=== PATIENT | male | born 1980 | race African-American/Black ===

== ENCOUNTER 2021-04-10 13:39 | Inpatient (IN) ==
[2021-04-10 14:18] LABS: Basophils % 0.4 % (0.0-0.8); Eosinophils % 0.2 % (0.00-10.9); Hematocrit 27.7 VOL% (42.0-52.0); Hemoglobin 8.9 GM/DL (14.0-18.0); Immature Granulocytes % 0.5 %; Immature Granulocytes Absolute 0.05 #; Lymphocytes # 1.1 10*3/uL (1.4-4.0); Lymphocytes % 11.9 % (21.2-54.2); Mean Corpuscular HGB Conc 32.1 GM/DL (32-36); Mean Corpuscular Volume 87.7 FL (87-102); Monocytes % 8.5 % (1.7-12.7); Neutrophils % 78.5 % (38.7-73.9); Platelet Count 290 T/CUMM (130-400); Red Blood Count 3.16 MC/CUMM (3.8-5.5); Red Cell Distribution Width 13.6 % (9.3-17.3); White Blood Count 9.3 T/CUMM (4-12)
[2021-04-10 14:46] LABS: Albumin 2.8 G/DL (3.4-5.0); Bilirubin,Total 0.5 MG/DL (0.20-1.00); Calcium 8.4 MG/DL (8.5-10.1); Potassium 4.1 MMOL/L (3.5-5.1); Total Protein 7.7 G/DL (6.4-8.2)
[2021-04-10] MEDS ORDERED: FUROSEMIDE 40 MG/4 ML VIAL IV STA (16:58)
[2021-04-10] MEDS ORDERED: cefTRIAXone 1,000 MG in SODIUM CHLORIDE 0.9% 100 ML IV STA (16:58)
[2021-04-10] MEDS ORDERED: AZITHROMYCIN INJ 500 MG in SODIUM CHLORIDE 0.9% 250 ML IV STA (16:58)
[2021-04-10] MEDS ORDERED: ALBUTEROL/IPRATROPIUM 3 ML NEB RESP TX STA (16:58)
[2021-04-10] MEDS ORDERED: ONDANSETRON 4 MG/2 ML VIAL IV STA (16:58)
[2021-04-10] MEDS ORDERED: KETOROLAC 30 MG/1 ML VIAL IV STA (16:59)
[2021-04-10] MEDS ORDERED: GLUCAGON 1 MG VIAL IM PRN ×2 (17:35→17:38)
[2021-04-10] MEDS ORDERED: DEXTROSE 50% 25 GM/50 ML VIAL IV PRN (17:35)
[2021-04-10] MEDS ORDERED: MAGNESIUM SULF RIDER 2 GM/50 ML PREMIX IV PRN (17:38)
[2021-04-10] MEDS ORDERED: ONDANSETRON 4 MG/2 ML VIAL IV PRN (17:38)
[2021-04-10] MEDS ORDERED: MAGNESIUM SULF RIDER 4 GM/100 ML PREMIX IV PRN (17:38)
[2021-04-10] MEDS ORDERED: DEXTROSE 10% 250 ML BAG IV PRN (17:47)
[2021-04-10 18:45] LABS: Ferritin 208.4 ng/mL (26-388)
[2021-04-10 18:52] LABS: INR 1.1; PT Patient Result 12.4 SECS (10.5-12.0); Thyroid Stimulating Hormone 0.945 uIU/ml (0.358-3.74)
[2021-04-10] MEDS: ENOXAPARIN 30 MG/0.3 ML SYRINGE SUBCUT SCH (20:49)
[2021-04-10] MEDS: carvediloL 6.25 MG TABLET PO SCH (20:49)
[2021-04-10] MEDS: INSULIN GLARGINE 100 UNIT/ML SUBCUT SCH (20:49)
[2021-04-10] MEDS: INSULIN LISPRO 100 UNIT/ML SUBCUT SCH (20:56)
[2021-04-10] MEDS: INSULIN REGULAR 100 UNIT/ML SUBCUT SCH (20:58)
[2021-04-11 07:25] LABS: Risk Ratio 2.48; VLDL Cholesterol 11.6 MG/DL
[2021-04-11] MEDS ORDERED: FUROSEMIDE 40 MG/4 ML VIAL IV SCH (08:00)
[2021-04-11] MEDS: INSULIN REGULAR 100 UNIT/ML SUBCUT SCH ×4 (09:25→20:00)
[2021-04-11] MEDS: INSULIN LISPRO 100 UNIT/ML SUBCUT SCH ×4 (09:25→20:31)
[2021-04-11 09:34] LABS: Calcium 8.3 MG/DL (8.5-10.1); Potassium 3.5 MMOL/L (3.5-5.1)
[2021-04-11 09:41] LABS: Folate 14.3 NG/ML (5.38-24.0)
[2021-04-11 10:04] LABS: % Iron Saturation 7.8 % (18-50); Ferritin 199.3 ng/mL (26-388)
[2021-04-11] MEDS: LOSARTAN 50 MG TABLET PO SCH (10:08)
[2021-04-11] MEDS: ASPIRIN CHEW 81 MG TABLET PO SCH (10:08)
[2021-04-11] MEDS: metOLazone 2.5 MG TABLET PO SCH (10:08)
[2021-04-11] MEDS: PANTOPRAZOLE 40 MG TABLET PO SCH (10:08)
[2021-04-11] MEDS: carvediloL 6.25 MG TABLET PO SCH ×2 (10:08→20:00)
[2021-04-11] MEDS: FERRIC GLUCONATE COMPLEX 125 MG in SODIUM CHLORIDE 0.9% 100 ML IV SCH (14:43)
[2021-04-11] MEDS: ENOXAPARIN 30 MG/0.3 ML SYRINGE SUBCUT SCH (19:59)
[2021-04-11] MEDS: INSULIN GLARGINE 100 UNIT/ML SUBCUT SCH (20:00)
[2021-04-11] MEDS ORDERED: FUROSEMIDE 40 MG/4 ML VIAL IV ONE (21:21)
[2021-04-12] MEDS ORDERED: ALBUTEROL/IPRATROPIUM 3 ML NEB RESP TX SCH (01:00)
[2021-04-12] MEDS: ALBUTEROL/IPRATROPIUM 3 ML NEB RESP TX SCH ×4 (01:50→19:15)
[2021-04-12 06:31] LABS: Basophils % 0.4 % (0.0-0.8); Eosinophils % 0.1 % (0.00-10.9); Hematocrit 28.3 VOL% (42.0-52.0); Immature Granulocytes % 0.5 %; Immature Granulocytes Absolute 0.05 #; Lymphocytes # 1.3 10*3/uL (1.4-4.0); Lymphocytes % 13.4 % (21.2-54.2); Mean Corpuscular HGB Conc 31.8 GM/DL (32-36); Mean Corpuscular Volume 87.3 FL (87-102); Mean Platelet Volume 10.2 FL (9.6-12.0); Monocytes % 9.1 % (1.7-12.7); Neutrophils % 76.5 % (38.7-73.9); Platelet Count 310 T/CUMM (130-400); Red Blood Count 3.24 MC/CUMM (3.8-5.5); Red Cell Distribution Width 13.4 % (9.3-17.3); White Blood Count 9.3 T/CUMM (4-12)
[2021-04-12 07:11] LABS: Calcium 8.7 MG/DL (8.5-10.1); Osmolality,Calculated 272.5 MOS/KG (273-304); Potassium 3.7 MMOL/L (3.5-5.1)
[2021-04-12] MEDS: INSULIN REGULAR 100 UNIT/ML SUBCUT SCH ×4 (09:42→22:21)
[2021-04-12] MEDS: INSULIN LISPRO 100 UNIT/ML SUBCUT SCH ×4 (09:43→22:20)
[2021-04-12] MEDS: FERRIC GLUCONATE COMPLEX 125 MG in SODIUM CHLORIDE 0.9% 100 ML IV SCH (10:46)
[2021-04-12] MEDS: carvediloL 6.25 MG TABLET PO SCH ×2 (10:48→22:19)
[2021-04-12] MEDS: ASPIRIN CHEW 81 MG TABLET PO SCH (10:48)
[2021-04-12] MEDS: PANTOPRAZOLE 40 MG TABLET PO SCH (10:48)
[2021-04-12] MEDS: AZITHROMYCIN 250 MG TABLET PO SCH (10:48)
[2021-04-12] MEDS: metOLazone 2.5 MG TABLET PO SCH (10:48)
[2021-04-12] MEDS: LOSARTAN 50 MG TABLET PO SCH (10:50)
[2021-04-12] MEDS: amLODIPine 10 MG TABLET PO SCH (10:54)
[2021-04-12] MEDS: cefTRIAXone 1,000 MG in SODIUM CHLORIDE 0.9% 100 ML IV SCH (22:19)
[2021-04-12] MEDS: ASCORBIC ACID 500 MG TABLET PO SCH (22:19)
[2021-04-12] MEDS: INSULIN GLARGINE 100 UNIT/ML SUBCUT SCH (22:21)
[2021-04-12] MEDS: ENOXAPARIN 30 MG/0.3 ML SYRINGE SUBCUT SCH (22:21)
[2021-04-13] MEDS: ALBUTEROL/IPRATROPIUM 3 ML NEB RESP TX SCH ×4 (00:40→19:45)
[2021-04-13 05:56] LABS: Ferritin 365.9 ng/mL (26-388)
[2021-04-13] MEDS: INSULIN REGULAR 100 UNIT/ML SUBCUT SCH (08:06)
[2021-04-13] MEDS: INSULIN LISPRO 100 UNIT/ML SUBCUT SCH ×7 (09:26→22:05)
[2021-04-13] MEDS: amLODIPine 10 MG TABLET PO SCH (09:27)
[2021-04-13] MEDS: ASPIRIN CHEW 81 MG TABLET PO SCH (09:27)
[2021-04-13] MEDS: metOLazone 2.5 MG TABLET PO SCH (09:27)
[2021-04-13] MEDS: ZINC GLUCONATE 50 MG TABLET PO SCH (09:27)
[2021-04-13] MEDS: CHOLECALCIFEROL 1,000 UNIT TABLET PO SCH (09:27)
[2021-04-13] MEDS: carvediloL 6.25 MG TABLET PO SCH ×2 (09:27→21:39)
[2021-04-13] MEDS: PANTOPRAZOLE 40 MG TABLET PO SCH (09:27)
[2021-04-13] MEDS: FERRIC GLUCONATE COMPLEX 125 MG in SODIUM CHLORIDE 0.9% 100 ML IV SCH (09:27)
[2021-04-13] MEDS: ASCORBIC ACID 500 MG TABLET PO SCH ×2 (09:27→21:39)
[2021-04-13] MEDS: AZITHROMYCIN 250 MG TABLET PO SCH (09:28)
[2021-04-13 10:09] LABS: Calcium 8.5 MG/DL (8.5-10.1); Osmolality,Calculated 281.1 MOS/KG (273-304); Potassium 3.4 MMOL/L (3.5-5.1)
[2021-04-13] MEDS ORDERED: POTASSIUM CHLORIDE 20 MEQ TABLET PO ONE (11:04)
[2021-04-13] MEDS ORDERED: ENOXAPARIN 30 MG/0.3 ML SYRINGE SUBCUT SCH (21:00)
[2021-04-13] MEDS: cefTRIAXone 1,000 MG in SODIUM CHLORIDE 0.9% 100 ML IV SCH (21:37)
[2021-04-13] MEDS: INSULIN GLARGINE 100 UNIT/ML SUBCUT SCH (22:06)
[2021-04-14] MEDS: ALBUTEROL/IPRATROPIUM 3 ML NEB RESP TX SCH ×4 (00:09→18:50)
[2021-04-14 04:34] LABS: ABG Base Excess 4.1 MMOL/L (-2.5-2.5); ABG HCO3 27.2 MMOL/L (20-26); ABG Oxygen Saturation 96.9 % (95-100); ABG PCO2 35.6 MM HG (35-48); ABG PH 7.501 (7.35-7.45); ABG PO2 91.7 MM HG (80-95); ABG TCO2 28.3 MMOL/L (23-27)
[2021-04-14] MEDS: ENOXAPARIN 100 MG/ML SYRINGE SUBCUT SCH ×2 (05:08→17:24)
[2021-04-14] MEDS: hydrALAZINE 20 MG/1 ML VIAL IV PRN (05:11)
[2021-04-14 05:31] LABS: Basophils # 0.1 10*3/uL (0.0-0.2); Basophils % 0.6 % (0.0-0.8); Eosinophils # 0.1 10*3/uL (0.0-0.87); Hematocrit 26.7 VOL% (42.0-52.0); Hemoglobin 8.5 GM/DL (14.0-18.0); Immature Granulocytes % 0.8 %; Immature Granulocytes Absolute 0.07 #; Lymphocytes # 1.3 10*3/uL (1.4-4.0); Lymphocytes % 14.4 % (21.2-54.2); Mean Corpuscular HGB Conc 31.8 GM/DL (32-36); Mean Corpuscular Volume 86.7 FL (87-102); Mean Platelet Volume 10.4 FL (9.6-12.0); Monocytes % 9.5 % (1.7-12.7); Neutrophils % 73.7 % (38.7-73.9); Platelet Count 336 T/CUMM (130-400); Red Blood Count 3.08 MC/CUMM (3.8-5.5); Red Cell Distribution Width 13.4 % (9.3-17.3); White Blood Count 9.1 T/CUMM (4-12)
[2021-04-14 05:46] LABS: Calcium 8.4 MG/DL (8.5-10.1); Ferritin 510.6 ng/mL (26-388); Osmolality,Calculated 282.1 MOS/KG (273-304); Potassium 3.5 MMOL/L (3.5-5.1)
[2021-04-14] MEDS ORDERED: FUROSEMIDE 100 MG/10 ML VIAL IV ONE (09:30)
[2021-04-14] MEDS: PANTOPRAZOLE 40 MG TABLET PO SCH (10:03)
[2021-04-14] MEDS: FERRIC GLUCONATE COMPLEX 125 MG in SODIUM CHLORIDE 0.9% 100 ML IV SCH (10:03)
[2021-04-14] MEDS: AZITHROMYCIN 250 MG TABLET PO SCH (10:03)
[2021-04-14] MEDS: ZINC GLUCONATE 50 MG TABLET PO SCH (10:03)
[2021-04-14] MEDS: INSULIN LISPRO 100 UNIT/ML SUBCUT SCH ×8 (10:04→22:40)
[2021-04-14] MEDS: ASPIRIN CHEW 81 MG TABLET PO SCH (10:04)
[2021-04-14] MEDS: amLODIPine 10 MG TABLET PO SCH (10:04)
[2021-04-14] MEDS: ASCORBIC ACID 500 MG TABLET PO SCH ×2 (10:04→22:54)
[2021-04-14] MEDS: CHOLECALCIFEROL 1,000 UNIT TABLET PO SCH (10:04)
[2021-04-14] MEDS: carvediloL 6.25 MG TABLET PO SCH (10:42)
[2021-04-14] MEDS: cefTRIAXone 1,000 MG in SODIUM CHLORIDE 0.9% 100 ML IV SCH (22:51)
[2021-04-14] MEDS: carvediloL 12.5 MG TABLET PO SCH (22:55)
[2021-04-14] MEDS: INSULIN GLARGINE 100 UNIT/ML SUBCUT SCH (22:55)
[2021-04-15] MEDS: ALBUTEROL/IPRATROPIUM 3 ML NEB RESP TX SCH ×4 (00:30→20:35)
[2021-04-15 05:14] LABS: Basophils # 0.1 10*3/uL (0.0-0.2); Basophils % 0.5 % (0.0-0.8); Eosinophils # 0.1 10*3/uL (0.0-0.87); Eosinophils % 0.7 % (0.00-10.9); Hemoglobin 8.1 GM/DL (14.0-18.0); Immature Granulocytes % 0.9 %; Immature Granulocytes Absolute 0.09 #; Lymphocytes # 1.5 10*3/uL (1.4-4.0); Lymphocytes % 14.9 % (21.2-54.2); Mean Corpuscular HGB Conc 32.4 GM/DL (32-36); Mean Corpuscular Volume 87.1 FL (87-102); Monocytes % 9.1 % (1.7-12.7); NRBC # 0.02 10*3/uL; Neutrophils % 73.9 % (38.7-73.9); Platelet Count 314 T/CUMM (130-400); Red Blood Count 2.87 MC/CUMM (3.8-5.5); Red Cell Distribution Width 13.8 % (9.3-17.3); White Blood Count 9.7 T/CUMM (4-12)
[2021-04-15 05:55] LABS: Alanine Aminotransferase 24 U/L (16-61); Albumin 1.8 G/DL (3.4-5.0); Alkaline Phosphatase 104 U/L (45-117); Aspartate Amino Transferase 44 U/L (0-37); Bilirubin,Total < 0.39 MG/DL (0.20-1.00); Blood Urea Nitrogen 44 MG/DL (7-18); Calcium 8.9 MG/DL (8.5-10.1); Carbon Dioxide 29 MMOL/L (21-32); Estimated Glom Filtration Rate 47 ML/MIN; Glucose 95 MG/DL (74-106); Osmolality,Calculated 280.1 MOS/KG (273-304); Potassium 3.2 MMOL/L (3.5-5.1); Sodium 135 MMOL/L (136-145); Total Protein 7.6 G/DL (6.4-8.2)
[2021-04-15] MEDS: ENOXAPARIN 100 MG/ML SYRINGE SUBCUT SCH ×2 (05:59→21:37)
[2021-04-15] MEDS: ZINC GLUCONATE 50 MG TABLET PO SCH (10:17)
[2021-04-15] MEDS: AZITHROMYCIN 250 MG TABLET PO SCH (10:17)
[2021-04-15] MEDS: amLODIPine 10 MG TABLET PO SCH (10:17)
[2021-04-15] MEDS: ASPIRIN CHEW 81 MG TABLET PO SCH (10:18)
[2021-04-15] MEDS: CHOLECALCIFEROL 1,000 UNIT TABLET PO SCH (10:18)
[2021-04-15] MEDS: ASCORBIC ACID 500 MG TABLET PO SCH ×2 (10:18→21:38)
[2021-04-15] MEDS: PANTOPRAZOLE 40 MG TABLET PO SCH (10:18)
[2021-04-15] MEDS: carvediloL 12.5 MG TABLET PO SCH ×2 (10:18→17:02)
[2021-04-15] MEDS: methylPREDNISolone SOD SUC 40 MG/1 ML VIAL IV SCH ×2 (10:20→17:02)
[2021-04-15] MEDS: FERRIC GLUCONATE COMPLEX 125 MG in SODIUM CHLORIDE 0.9% 100 ML IV SCH (10:36)
[2021-04-15] MEDS: INSULIN LISPRO 100 UNIT/ML SUBCUT SCH ×8 (10:46→21:40)
[2021-04-15] MEDS ORDERED: POTASSIUM CHLORIDE 20 MEQ TABLET PO ONE (11:00)
[2021-04-15] MEDS ORDERED: INSULIN GLARGINE 100 UNIT/ML SUBCUT SCH (21:00)
[2021-04-15] MEDS: cefTRIAXone 1,000 MG in SODIUM CHLORIDE 0.9% 100 ML IV SCH (21:38)
[2021-04-15] MEDS: DOCUSATE SODIUM 100 MG CAPSULE PO SCH (21:38)
[2021-04-16] MEDS: ALBUTEROL/IPRATROPIUM 3 ML NEB RESP TX SCH ×4 (01:18→20:40)
[2021-04-16] MEDS: methylPREDNISolone SOD SUC 40 MG/1 ML VIAL IV SCH ×3 (01:45→16:25)
[2021-04-16 05:05] LABS: ABG Base Excess 4.1 MMOL/L (-2.5-2.5); ABG HCO3 27.9 MMOL/L (20-26); ABG Oxygen Saturation 86.1 % (95-100); ABG PCO2 42.9 MM HG (35-48); ABG PH 7.436 (7.35-7.45); ABG PO2 55.8 MM HG (80-95); ABG TCO2 26.1 MMOL/L (23-27)
[2021-04-16 05:27] LABS: Basophils % 0.1 % (0.0-0.8); Hematocrit 27.3 VOL% (42.0-52.0); Hemoglobin 8.7 GM/DL (14.0-18.0); Immature Granulocytes % 1.1 %; Immature Granulocytes Absolute 0.12 #; Lymphocytes # 0.9 10*3/uL (1.4-4.0); Lymphocytes % 7.6 % (21.2-54.2); Mean Corpuscular HGB Conc 31.9 GM/DL (32-36); Mean Corpuscular Volume 87.2 FL (87-102); Mean Platelet Volume 10.4 FL (9.6-12.0); Monocytes % 4.3 % (1.7-12.7); Neutrophils % 86.9 % (38.7-73.9); Platelet Count 369 T/CUMM (130-400); Red Blood Count 3.13 MC/CUMM (3.8-5.5); Red Cell Distribution Width 13.8 % (9.3-17.3); White Blood Count 11.3 T/CUMM (4-12)
[2021-04-16 05:34] LABS: Alanine Aminotransferase 34 U/L (16-61); Albumin 1.9 G/DL (3.4-5.0); Alkaline Phosphatase 141 U/L (45-117); Aspartate Amino Transferase 46 U/L (0-37); Bilirubin,Total < 0.39 MG/DL (0.20-1.00); Blood Urea Nitrogen 56 MG/DL (7-18); Calcium 8.9 MG/DL (8.5-10.1); Carbon Dioxide 27 MMOL/L (21-32); Estimated Glom Filtration Rate 41 ML/MIN; Glucose 301 MG/DL (74-106); Osmolality,Calculated 288.7 MOS/KG (273-304); Potassium 3.9 MMOL/L (3.5-5.1); Sodium 131 MMOL/L (136-145); Total Protein 8.1 G/DL (6.4-8.2)
[2021-04-16] MEDS: ENOXAPARIN 100 MG/ML SYRINGE SUBCUT SCH ×2 (09:30→22:14)
[2021-04-16] MEDS: ASPIRIN CHEW 81 MG TABLET PO SCH (09:31)
[2021-04-16] MEDS: INSULIN LISPRO 100 UNIT/ML SUBCUT SCH ×8 (09:31→22:15)
[2021-04-16] MEDS: carvediloL 12.5 MG TABLET PO SCH ×2 (09:31→16:25)
[2021-04-16] MEDS: ZINC GLUCONATE 50 MG TABLET PO SCH (09:31)
[2021-04-16] MEDS: DOCUSATE SODIUM 100 MG CAPSULE PO SCH ×2 (09:31→22:14)
[2021-04-16] MEDS: amLODIPine 10 MG TABLET PO SCH (09:31)
[2021-04-16] MEDS: PANTOPRAZOLE 40 MG TABLET PO SCH (09:32)
[2021-04-16] MEDS: ASCORBIC ACID 500 MG TABLET PO SCH ×2 (09:32→22:14)
[2021-04-16] MEDS: FERRIC GLUCONATE COMPLEX 125 MG in SODIUM CHLORIDE 0.9% 100 ML IV SCH (09:37)
[2021-04-16] MEDS: CHOLECALCIFEROL 1,000 UNIT TABLET PO SCH (09:42)
[2021-04-16] MEDS: INSULIN GLARGINE 100 UNIT/ML SUBCUT SCH ×2 (09:42→22:15)
[2021-04-16] MEDS: SODIUM CHLORIDE 0.9% 1,000 ML IV SCH ×2 (13:05→22:50)
[2021-04-16] MEDS: cefTRIAXone 1,000 MG in SODIUM CHLORIDE 0.9% 100 ML IV SCH (22:14)
[2021-04-17] MEDS: methylPREDNISolone SOD SUC 40 MG/1 ML VIAL IV SCH ×3 (01:46→17:35)
[2021-04-17] MEDS: SODIUM CHLORIDE 0.9% 1,000 ML IV SCH ×2 (01:47→21:43)
[2021-04-17] MEDS: ALBUTEROL/IPRATROPIUM 3 ML NEB RESP TX SCH ×4 (02:08→19:45)
[2021-04-17 07:09] LABS: Basophils % 0.1 % (0.0-0.8); Hematocrit 28.5 VOL% (42.0-52.0); Immature Granulocytes Absolute 0.31 #; Lymphocytes # 0.8 10*3/uL (1.4-4.0); Lymphocytes % 5.2 % (21.2-54.2); Mean Corpuscular HGB Conc 31.6 GM/DL (32-36); Mean Corpuscular Volume 88.2 FL (87-102); Mean Platelet Volume 10.2 FL (9.6-12.0); Monocytes % 5.6 % (1.7-12.7); NRBC # 0.02 10*3/uL; Neutrophils % 87.1 % (38.7-73.9); Platelet Count 416 T/CUMM (130-400); Red Blood Count 3.23 MC/CUMM (3.8-5.5); Red Cell Distribution Width 13.8 % (9.3-17.3); White Blood Count 15.5 T/CUMM (4-12)
[2021-04-17 07:35] LABS: Alanine Aminotransferase 35 U/L (16-61); Albumin 1.9 G/DL (3.4-5.0); Alkaline Phosphatase 279 U/L (45-117); Aspartate Amino Transferase 55 U/L (0-37); Bilirubin,Total < 0.39 MG/DL (0.20-1.00); Blood Urea Nitrogen 61 MG/DL (7-18); Calcium 9.2 MG/DL (8.5-10.1); Carbon Dioxide 29 MMOL/L (21-32); Estimated Glom Filtration Rate 53 ML/MIN; Glucose 78 MG/DL (74-106); Potassium 4.1 MMOL/L (3.5-5.1); Sodium 136 MMOL/L (136-145); Total Protein 8.1 G/DL (6.4-8.2)
[2021-04-17] MEDS: ENOXAPARIN 100 MG/ML SYRINGE SUBCUT SCH (08:59)
[2021-04-17] MEDS: INSULIN GLARGINE 100 UNIT/ML SUBCUT SCH ×2 (08:59→22:01)
[2021-04-17] MEDS: FERRIC GLUCONATE COMPLEX 125 MG in SODIUM CHLORIDE 0.9% 100 ML IV SCH (09:00)
[2021-04-17] MEDS: ASCORBIC ACID 500 MG TABLET PO SCH ×2 (09:00→21:44)
[2021-04-17] MEDS: CHOLECALCIFEROL 1,000 UNIT TABLET PO SCH (09:01)
[2021-04-17] MEDS: ZINC GLUCONATE 50 MG TABLET PO SCH (09:01)
[2021-04-17] MEDS: amLODIPine 10 MG TABLET PO SCH (09:01)
[2021-04-17] MEDS: ASPIRIN CHEW 81 MG TABLET PO SCH (09:01)
[2021-04-17] MEDS: DOCUSATE SODIUM 100 MG CAPSULE PO SCH ×2 (09:01→21:43)
[2021-04-17] MEDS: PANTOPRAZOLE 40 MG TABLET PO SCH (09:01)
[2021-04-17] MEDS: carvediloL 12.5 MG TABLET PO SCH ×2 (09:01→18:29)
[2021-04-17] MEDS: INSULIN LISPRO 100 UNIT/ML SUBCUT SCH ×6 (09:23→21:59)
[2021-04-17] MEDS ORDERED: POLYETHYLENE GLYCOL POWDER 17 GM PACK PO PRN (12:39)
[2021-04-17] MEDS ORDERED: EPINEPHrine 1 MG/10 ML SYRINGE IV ONE ×2 (17:53→18:19)
[2021-04-17] MEDS ORDERED: SODIUM BICARBONATE 50 MEQ/50 ML SYRINGE IV ONE (17:54)
[2021-04-17] MEDS ORDERED: LORazepam 2 MG/1 ML VIAL ONE (17:56)
[2021-04-17] MEDS ORDERED: ETOMIDATE 20 MG/10 ML VIAL IV ONE ×3 (18:00→19:10)
[2021-04-17] MEDS ORDERED: DEXTROSE 50% 25 GM/50 ML SYRINGE IV ONE (18:05)
[2021-04-17] MEDS ORDERED: CALCIUM CHLORIDE 1,000 MG/10 ML SYRINGE IV ONE (18:07)
[2021-04-17] MEDS ORDERED: EPINEPHrine 1 MG/ML VIAL ONE ×2 (18:07→18:08)
[2021-04-17] MEDS ORDERED: ROCURONIUM 100 MG/10 ML VIAL IV ONE ×2 (18:17→19:10)
[2021-04-17 19:04] LABS: ABG Base Excess -11.4 MMOL/L (-2.5-2.5); ABG HCO3 19.9 MMOL/L (20-26); ABG PO2 45.4 MM HG (80-95); ABG TCO2 22.4 MMOL/L (23-27)
[2021-04-17 19:07] LABS: ABG PCO2 81.3 MM HG (35-48); ABG PH 7.006 (7.35-7.45); Basophils % 0.2 % (0.0-0.8); Eosinophils % 0.2 % (0.00-10.9); Hematocrit 27.8 VOL% (42.0-52.0); Hemoglobin 8.2 GM/DL (14.0-18.0); Immature Granulocytes % 9.5 %; Immature Granulocytes Absolute 1.58 #; Lymphocytes # 3.1 10*3/uL (1.4-4.0); Lymphocytes % 18.4 % (21.2-54.2); Mean Corpuscular HGB Conc 29.5 GM/DL (32-36); Mean Corpuscular Volume 94.9 FL (87-102); Mean Platelet Volume 10.2 FL (9.6-12.0); Monocytes % 5.3 % (1.7-12.7); NRBC # 0.16 10*3/uL; Neutrophils % 66.4 % (38.7-73.9); Platelet Count 354 T/CUMM (130-400); Red Blood Count 2.93 MC/CUMM (3.8-5.5); Red Cell Distribution Width 14.2 % (9.3-17.3); White Blood Count 16.6 T/CUMM (4-12)
[2021-04-17] MEDS: DOPamine 800 MG/250 ML PREMIX IV PRN (19:15)
[2021-04-17 19:23] LABS: Calcium 8.7 MG/DL (8.5-10.1); Osmolality,Calculated 310.7 MOS/KG (273-304); Potassium 4.1 MMOL/L (3.5-5.1)
[2021-04-17] MEDS ORDERED: fentaNYL INJ 1,250 MCG in SODIUM CHLORIDE 0.9% 225 ML IV PRN (19:23)
[2021-04-17] MEDS: MIDAZOLAM 100 MG in SODIUM CHLORIDE 0.9% 80 ML IV PRN (19:45)
[2021-04-17] MEDS: ROCURONIUM 500 MG in SODIUM CHLORIDE 0.9% 500 ML IV PRN (19:45)
[2021-04-17 20:12] LABS: ABG Base Excess -5.9 MMOL/L (-2.5-2.5); ABG HCO3 19.5 MMOL/L (20-26); ABG Oxygen Saturation 96.2 % (95-100); ABG TCO2 25.5 MMOL/L (23-27)
[2021-04-17 20:14] LABS: ABG PCO2 90.3 MM HG (35-48); ABG PH 7.067 (7.35-7.45)
[2021-04-17] MEDS ORDERED: APIXABAN 5 MG TABLET PO SCH (21:00)
[2021-04-17 21:12] LABS: Partial Thromboplastin Time 29.9 SECS (23.8-32.1)
[2021-04-17] MEDS: HEPARIN DRIP 25,000 UNITS/500 ML PREMIX IV SCH (21:13)
[2021-04-17 21:33] LABS: Alanine Aminotransferase 169 U/L (16-61); Albumin 1.6 G/DL (3.4-5.0); Alkaline Phosphatase 390 U/L (45-117); Amylase 78 U/L (25-115); Aspartate Amino Transferase 251 U/L (0-37); Bilirubin,Total < 0.39 MG/DL (0.20-1.00); Blood Urea Nitrogen 60 MG/DL (7-18); Calcium 8.3 MG/DL (8.5-10.1); Carbon Dioxide 26 MMOL/L (21-32); Estimated Glom Filtration Rate 45 ML/MIN; Glucose 397 MG/DL (74-106); Potassium 5.9 MMOL/L (3.5-5.1); Sodium 136 MMOL/L (136-145); Total Protein 7.1 G/DL (6.4-8.2)
[2021-04-17] MEDS: cefTRIAXone 1,000 MG in SODIUM CHLORIDE 0.9% 100 ML IV SCH (22:07)
[2021-04-17 22:29] LABS: Bacteria,Urine Occasional /HPF (Few); Bilirubin,Urine Negative (Negative); Blood, Urine Negative (Negative); Glucose,Urine (UA) >=500 mg/dL (Negative); Hyaline Casts,Urine 3 /LPF (0-3); Ketones,Urine Negative (Negative); Mucus,Urine Occasional /LPF (Occasional); Nitrite,Urine Negative (Negative); Protein,Urine 100 MG/DL; RBC,Urine 11 /HPF (0-4); Squamous Epithelial Cell,Urine Occasional /HPF (0-10); Urine Appearance CLOUDY (Clear); Urine Color Yellow (Yellow); Urine Specific Gravity 1.011 (1.001-1.035); Urine Urobilinogen < 2.0 EU/DL (<2.0)
[2021-04-17] MEDS: fentaNYL INJ 2,500 MCG in SODIUM CHLORIDE 0.9% 75 ML IV PRN (22:48)
[2021-04-17 23:21] LABS: ABG Base Excess -0.9 MMOL/L (-2.5-2.5); ABG HCO3 23.7 MMOL/L (20-26); ABG TCO2 27.7 MMOL/L (23-27)
[2021-04-17 23:32] LABS: ABG PCO2 77.4 MM HG (35-48); ABG PH 7.181 (7.35-7.45)
[2021-04-17 23:37] LABS: Specimen Source BRONCH WASH
[2021-04-18] MEDS: ALBUTEROL/IPRATROPIUM 3 ML NEB RESP TX SCH ×4 (00:53→18:43)
[2021-04-18] MEDS: methylPREDNISolone SOD SUC 40 MG/1 ML VIAL IV SCH ×3 (01:26→16:45)
[2021-04-18] MEDS ORDERED: INSULIN REGULAR 100 UNIT/ML IV SCH (01:30)
[2021-04-18] MEDS: SODIUM CHLORIDE 0.9% 1,000 ML IV SCH ×3 (01:30→15:17)
[2021-04-18] MEDS: fentaNYL INJ 2,500 MCG in SODIUM CHLORIDE 0.9% 75 ML IV PRN ×5 (01:41→23:37)
[2021-04-18] MEDS: POLYVINYL ALCOHOL 1.4% OPH SOLN 15 ML BOTTLE BOTH EYES PRN ×3 (02:02→15:33)
[2021-04-18 02:53] LABS: ABG Base Excess -0.7 MMOL/L (-2.5-2.5); ABG HCO3 23.8 MMOL/L (20-26); ABG Oxygen Saturation 93.9 % (95-100); ABG PH 7.213 (7.35-7.45); ABG PO2 87.3 MM HG (80-95); ABG TCO2 26.9 MMOL/L (23-27)
[2021-04-18 02:55] LABS: ABG PCO2 69.8 MM HG (35-48)
[2021-04-18 03:00] LABS: Basophils % 0.1 % (0.0-0.8); Hematocrit 25.6 VOL% (42.0-52.0); Hemoglobin 7.9 GM/DL (14.0-18.0); Immature Granulocytes % 1.6 %; Immature Granulocytes Absolute 0.21 #; Lymphocytes # 0.8 10*3/uL (1.4-4.0); Mean Corpuscular HGB Conc 30.9 GM/DL (32-36); Mean Corpuscular Volume 91.1 FL (87-102); Mean Platelet Volume 10.1 FL (9.6-12.0); Monocytes % 4.4 % (1.7-12.7); NRBC # 0.05 10*3/uL; Neutrophils % 87.9 % (38.7-73.9); Platelet Count 298 T/CUMM (130-400); Red Blood Count 2.81 MC/CUMM (3.8-5.5); Red Cell Distribution Width 14.1 % (9.3-17.3); White Blood Count 13.5 T/CUMM (4-12)
[2021-04-18] MEDS: INSULIN REGULAR DRIP 100 ML IV PRN ×2 (03:14→13:32)
[2021-04-18 03:18] LABS: Band Neutrophils 8 % (0-10); Hypochromia Slight; Lymphocytes 3 % (20-55); Platelet Estimate Normal; Segmented Neutrophils 84 % (50-85); Total Cells Counted 100
[2021-04-18] MEDS: ROCURONIUM 500 MG in SODIUM CHLORIDE 0.9% 500 ML IV PRN ×2 (04:46→15:40)
[2021-04-18 05:20] LABS: INR 1.3; PT Patient Result 14.4 SECS (10.5-12.0)
[2021-04-18 05:22] LABS: Partial Thromboplastin Time 103.1 SECS (23.8-32.1)
[2021-04-18] MEDS: MIDAZOLAM 100 MG in SODIUM CHLORIDE 0.9% 80 ML IV PRN ×2 (05:48→15:00)
[2021-04-18 06:07] LABS: Calcium 8.1 MG/DL (8.5-10.1); Osmolality,Calculated 304.8 MOS/KG (273-304); Potassium 5.2 MMOL/L (3.5-5.1)
[2021-04-18 08:11] LABS: Alanine Aminotransferase 143 U/L (16-61); Albumin 1.5 G/DL (3.4-5.0); Alkaline Phosphatase 303 U/L (45-117); Aspartate Amino Transferase 153 U/L (0-37); Bilirubin,Total < 0.39 MG/DL (0.20-1.00); Blood Urea Nitrogen 62 MG/DL (7-18); Calcium 7.8 MG/DL (8.5-10.1); Carbon Dioxide 27 MMOL/L (21-32); Estimated Glom Filtration Rate 45 ML/MIN; Glucose 369 MG/DL (74-106); Osmolality,Calculated 309.5 MOS/KG (273-304); Potassium 5.4 MMOL/L (3.5-5.1); Sodium 139 MMOL/L (136-145); Total Protein 6.2 G/DL (6.4-8.2)
[2021-04-18] MEDS: carvediloL 12.5 MG TABLET PO SCH ×2 (08:45→16:41)
[2021-04-18] MEDS: amLODIPine 10 MG TABLET PO SCH (09:35)
[2021-04-18] MEDS: PANTOPRAZOLE 40 MG TABLET PO SCH (09:42)
[2021-04-18] MEDS: INSULIN GLARGINE 100 UNIT/ML SUBCUT SCH ×2 (10:59→20:28)
[2021-04-18] MEDS: PANTOPRAZOLE 40 MG VIAL IV SCH (11:00)
[2021-04-18 11:02] LABS: Basophils % 0.1 % (0.0-0.8); Eosinophils % 0.1 % (0.00-10.9); Hematocrit 23.6 VOL% (42.0-52.0); Hemoglobin 7.2 GM/DL (14.0-18.0); Immature Granulocytes Absolute 0.12 #; Lymphocytes % 8.4 % (21.2-54.2); Mean Corpuscular HGB Conc 30.5 GM/DL (32-36); Mean Corpuscular Volume 91.5 FL (87-102); Mean Platelet Volume 9.8 FL (9.6-12.0); Monocytes % 4.2 % (1.7-12.7); NRBC # 0.04 10*3/uL; Neutrophils % 86.2 % (38.7-73.9); Platelet Count 266 T/CUMM (130-400); Red Blood Count 2.58 MC/CUMM (3.8-5.5); Red Cell Distribution Width 14.2 % (9.3-17.3)
[2021-04-18 11:26] LABS: Calcium 7.8 MG/DL (8.5-10.1); Osmolality,Calculated 301.4 MOS/KG (273-304); Potassium 4.5 MMOL/L (3.5-5.1)
[2021-04-18 11:32] LABS: INR 1.3
[2021-04-18] MEDS: DOCUSATE SODIUM 100 MG CAPSULE PO SCH ×2 (11:43→20:28)
[2021-04-18] MEDS: ASCORBIC ACID 500 MG TABLET PO SCH ×2 (11:56→20:50)
[2021-04-18] MEDS: CHOLECALCIFEROL 1,000 UNIT TABLET PO SCH (11:56)
[2021-04-18] MEDS: ZINC GLUCONATE 50 MG TABLET PO SCH (11:56)
[2021-04-18] MEDS: ASPIRIN CHEW 81 MG TABLET PO SCH (11:56)
[2021-04-18 11:58] LABS: Partial Thromboplastin Time 147.6 SECS (23.8-32.1)
[2021-04-18 12:15] LABS: Hypochromia 1+; Lymphocytes 5 % (20-55); Segmented Neutrophils 90 % (50-85); Total Cells Counted 100
[2021-04-18 12:16] LABS: Microcytosis 1+; Ovalocytes Slight; Platelet Estimate Normal
[2021-04-18] MEDS: FERRIC GLUCONATE COMPLEX 125 MG in SODIUM CHLORIDE 0.9% 100 ML IV SCH (12:25)
[2021-04-18] MEDS: HEPARIN DRIP 25,000 UNITS/500 ML PREMIX IV SCH ×2 (13:19→19:33)
[2021-04-18 15:44] LABS: Basophils % 0.1 % (0.0-0.8); Hematocrit 24.3 VOL% (42.0-52.0); Hemoglobin 7.4 GM/DL (14.0-18.0); Immature Granulocytes % 1.3 %; Immature Granulocytes Absolute 0.13 #; Lymphocytes # 0.9 10*3/uL (1.4-4.0); Lymphocytes % 9.2 % (21.2-54.2); Mean Corpuscular HGB Conc 30.5 GM/DL (32-36); Mean Corpuscular Volume 91.7 FL (87-102); Monocytes % 4.3 % (1.7-12.7); NRBC # 0.04 10*3/uL; Neutrophils % 85.1 % (38.7-73.9); Platelet Count 270 T/CUMM (130-400); Red Blood Count 2.65 MC/CUMM (3.8-5.5); Red Cell Distribution Width 14.3 % (9.3-17.3); White Blood Count 10.2 T/CUMM (4-12)
[2021-04-18 16:01] LABS: Calcium 7.9 MG/DL (8.5-10.1); Osmolality,Calculated 300.1 MOS/KG (273-304); Potassium 4.4 MMOL/L (3.5-5.1)
[2021-04-18 16:06] LABS: CKMB % 2.7 %; High Sensitive Troponin I* 286.5 ng/L (0-78)
[2021-04-18 16:09] LABS: Band Neutrophils 4 % (0-10); Dohle Bodies 1+; Hypochromia Slight; Lymphocytes 10 % (20-55); Myelocytes 1 %; Polychromasia Slight; Segmented Neutrophils 85 % (50-85); Total Cells Counted 100; Toxic Granulation 1+
[2021-04-18 16:10] LABS: Platelet Estimate Normal; Poikilocytosis Slight; Schistocytes Slight; Target Cells Slight
[2021-04-18 16:14] LABS: INR 1.2; PT Patient Result 13.7 SECS (10.5-12.0)
[2021-04-18 20:27] LABS: Basophils % 0.1 % (0.0-0.8); Eosinophils % 0.1 % (0.00-10.9); Hematocrit 24.8 VOL% (42.0-52.0); Hemoglobin 7.6 GM/DL (14.0-18.0); Immature Granulocytes % 0.7 %; Immature Granulocytes Absolute 0.06 #; Lymphocytes # 0.9 10*3/uL (1.4-4.0); Lymphocytes % 10.2 % (21.2-54.2); Mean Corpuscular HGB Conc 30.6 GM/DL (32-36); Mean Corpuscular Volume 88.9 FL (87-102); Mean Platelet Volume 9.4 FL (9.6-12.0); Monocytes % 6.7 % (1.7-12.7); NRBC # 0.06 10*3/uL; Neutrophils % 82.2 % (38.7-73.9); Platelet Count 227 T/CUMM (130-400); Red Blood Count 2.79 MC/CUMM (3.8-5.5); Red Cell Distribution Width 15.4 % (9.3-17.3); White Blood Count 8.6 T/CUMM (4-12)
[2021-04-18] MEDS: cefTRIAXone 1,000 MG in SODIUM CHLORIDE 0.9% 100 ML IV SCH (20:46)
[2021-04-18 20:50] LABS: Calcium 7.6 MG/DL (8.5-10.1); Osmolality,Calculated 296.3 MOS/KG (273-304); Potassium 4.7 MMOL/L (3.5-5.1)
[2021-04-18 20:54] LABS: INR 1.3; PT Patient Result 13.9 SECS (10.5-12.0)
[2021-04-18 20:56] LABS: Partial Thromboplastin Time 153.9 SECS (23.8-32.1)
[2021-04-18 22:07] LABS: Hypochromia 2+; Microcytosis 1+; Platelet Estimate Normal; Polychromasia Few; Reactive Lymphocytes Few
[2021-04-18 22:08] LABS: Target Cells Few
[2021-04-19] MEDS: SODIUM CHLORIDE 0.9% 1,000 ML IV SCH ×3 (00:43→14:03)
[2021-04-19] MEDS: methylPREDNISolone SOD SUC 40 MG/1 ML VIAL IV SCH ×3 (00:46→18:01)
[2021-04-19] MEDS: ALBUTEROL/IPRATROPIUM 3 ML NEB RESP TX SCH ×4 (00:59→18:41)
[2021-04-19] MEDS: POLYVINYL ALCOHOL 1.4% OPH SOLN 15 ML BOTTLE BOTH EYES PRN ×3 (01:12→12:30)
[2021-04-19 02:16] LABS: ABG Base Excess 0.2 MMOL/L (-2.5-2.5); ABG HCO3 24.6 MMOL/L (20-26); ABG Oxygen Saturation 96.6 % (95-100); ABG PCO2 63.4 MM HG (35-48); ABG PH 7.256 (7.35-7.45); ABG PO2 98.3 MM HG (80-95); ABG TCO2 26.8 MMOL/L (23-27)
[2021-04-19 02:21] LABS: Hematocrit 25.3 VOL% (42.0-52.0); Hemoglobin 7.7 GM/DL (14.0-18.0); Immature Granulocytes Absolute 0.09 #; Lymphocytes # 0.9 10*3/uL (1.4-4.0); Lymphocytes % 9.4 % (21.2-54.2); Mean Corpuscular HGB Conc 30.4 GM/DL (32-36); Mean Corpuscular Volume 89.4 FL (87-102); Mean Platelet Volume 10.1 FL (9.6-12.0); Monocytes % 4.3 % (1.7-12.7); NRBC # 0.07 10*3/uL; Neutrophils % 85.3 % (38.7-73.9); Platelet Count 244 T/CUMM (130-400); Red Blood Count 2.83 MC/CUMM (3.8-5.5); Red Cell Distribution Width 15.8 % (9.3-17.3); White Blood Count 9.1 T/CUMM (4-12)
[2021-04-19 02:38] LABS: Calcium 7.3 MG/DL (8.5-10.1); Osmolality,Calculated 301.8 MOS/KG (273-304)
[2021-04-19] MEDS: MIDAZOLAM 100 MG in SODIUM CHLORIDE 0.9% 80 ML IV PRN (03:03)
[2021-04-19] MEDS: fentaNYL INJ 2,500 MCG in SODIUM CHLORIDE 0.9% 75 ML IV PRN (05:12)
[2021-04-19 06:27] LABS: INR 1.1; PT Patient Result 12.6 SECS (10.5-12.0)
[2021-04-19 06:38] LABS: Partial Thromboplastin Time 102.7 SECS (23.8-32.1)
[2021-04-19] MEDS: INSULIN GLARGINE 100 UNIT/ML SUBCUT SCH (08:21)
[2021-04-19] MEDS ORDERED: DEXTROSE 50% 25 GM/50 ML VIAL IV PRN (08:31)
[2021-04-19] MEDS ORDERED: GLUCAGON 1 MG VIAL IM PRN (08:31)
[2021-04-19] MEDS: ROCURONIUM 500 MG in SODIUM CHLORIDE 0.9% 500 ML IV PRN (08:40)
[2021-04-19 08:53] LABS: INR 1.1; PT Patient Result 12.4 SECS (10.5-12.0)
[2021-04-19 08:58] LABS: Partial Thromboplastin Time 59.4 SECS (23.8-32.1)
[2021-04-19] MEDS: FERRIC GLUCONATE COMPLEX 125 MG in SODIUM CHLORIDE 0.9% 100 ML IV SCH (09:18)
[2021-04-19] MEDS: PANTOPRAZOLE 40 MG VIAL IV SCH (10:30)
[2021-04-19] MEDS: FUROSEMIDE INJ 100 MG in SODIUM CHLORIDE 0.9% 90 ML IV SCH (10:37)
[2021-04-19] MEDS: amLODIPine 10 MG TABLET PO SCH (10:38)
[2021-04-19] MEDS: DOCUSATE SODIUM 100 MG/10 ML UDCUP PO SCH ×2 (10:38→21:14)
[2021-04-19] MEDS: ASPIRIN CHEW 81 MG TABLET PO SCH (10:38)
[2021-04-19] MEDS: ASCORBIC ACID 500 MG TABLET PO SCH ×2 (10:38→21:14)
[2021-04-19] MEDS: ZINC GLUCONATE 50 MG TABLET PO SCH (10:38)
[2021-04-19] MEDS: carvediloL 12.5 MG TABLET PO SCH ×2 (10:38→18:07)
[2021-04-19] MEDS: CHOLECALCIFEROL 1,000 UNIT TABLET PO SCH (10:38)
[2021-04-19 12:25] LABS: ABG Base Excess -1.3 MMOL/L (-2.5-2.5); ABG HCO3 23.3 MMOL/L (20-26); ABG Oxygen Saturation 96.2 % (95-100); ABG PH 7.352 (7.35-7.45); ABG PO2 88.2 MM HG (80-95); ABG TCO2 22.4 MMOL/L (23-27)
[2021-04-19 12:32] LABS: Basophils % 0.1 % (0.0-0.8); Hemoglobin 7.4 GM/DL (14.0-18.0); Immature Granulocytes % 1.1 %; Lymphocytes # 0.6 10*3/uL (1.4-4.0); Lymphocytes % 6.8 % (21.2-54.2); Mean Corpuscular HGB Conc 30.8 GM/DL (32-36); Mean Corpuscular Volume 87.3 FL (87-102); Mean Platelet Volume 9.6 FL (9.6-12.0); Monocytes % 5.8 % (1.7-12.7); NRBC # 0.18 10*3/uL; Neutrophils % 86.2 % (38.7-73.9); Platelet Count 246 T/CUMM (130-400); Red Blood Count 2.75 MC/CUMM (3.8-5.5); Red Cell Distribution Width 16.1 % (9.3-17.3); White Blood Count 9.4 T/CUMM (4-12)
[2021-04-19 12:43] LABS: INR 1.2; PT Patient Result 12.7 SECS (10.5-12.0)
[2021-04-19 12:55] LABS: Partial Thromboplastin Time 74.6 SECS (23.8-32.1)
[2021-04-19 12:56] LABS: Alanine Aminotransferase 95 U/L (16-61); Albumin 1.3 G/DL (3.4-5.0); Alkaline Phosphatase 203 U/L (45-117); Aspartate Amino Transferase 43 U/L (0-37); Bilirubin,Total < 0.39 MG/DL (0.20-1.00); Blood Urea Nitrogen 69 MG/DL (7-18); Calcium 7.5 MG/DL (8.5-10.1); Carbon Dioxide 24 MMOL/L (21-32); Estimated Glom Filtration Rate 38 ML/MIN; Glucose 122 MG/DL (74-106); Osmolality,Calculated 303.1 MOS/KG (273-304); Sodium 142 MMOL/L (136-145); Total Protein 6.1 G/DL (6.4-8.2)
[2021-04-19 13:24] LABS: Hypochromia 1+; Lymphocytes 10 % (20-55); Nucleated Red Blood Cells 3 (0-5); Segmented Neutrophils 87 % (50-85); Total Cells Counted 100
[2021-04-19 13:25] LABS: Elliptocytes 1+; Platelet Estimate Adequate; Polychromasia Few; Schistocytes Few
[2021-04-19 15:01] LABS: INR 1.2; PT Patient Result 12.7 SECS (10.5-12.0); Partial Thromboplastin Time 66.2 SECS (23.8-32.1)
[2021-04-19] MEDS: HEPARIN DRIP 25,000 UNITS/500 ML PREMIX IV SCH ×2 (15:10→19:31)
[2021-04-19] MEDS ORDERED: LABETALOL 20 MG/4 ML SYRINGE IV PRN (16:50)
[2021-04-19] MEDS: hydrALAZINE 20 MG/1 ML VIAL IV PRN (20:02)
[2021-04-19 20:34] LABS: INR 1.1; PT Patient Result 12.5 SECS (10.5-12.0)
[2021-04-19 20:37] LABS: Partial Thromboplastin Time 49.6 SECS (23.8-32.1)
[2021-04-19] MEDS: cefTRIAXone 1,000 MG in SODIUM CHLORIDE 0.9% 100 ML IV SCH (21:14)
[2021-04-19] MEDS: DOPamine 800 MG/250 ML PREMIX IV PRN (23:07)
[2021-04-20] MEDS: ALBUTEROL/IPRATROPIUM 3 ML NEB RESP TX SCH ×4 (00:05→19:17)
[2021-04-20] MEDS: methylPREDNISolone SOD SUC 40 MG/1 ML VIAL IV SCH ×3 (01:14→17:22)
[2021-04-20] MEDS: POLYVINYL ALCOHOL 1.4% OPH SOLN 15 ML BOTTLE BOTH EYES PRN (03:38)
[2021-04-20 04:19] LABS: ABG Base Excess -2.7 MMOL/L (-2.5-2.5); ABG HCO3 22.1 MMOL/L (20-26); ABG Oxygen Saturation 95.2 % (95-100); ABG PCO2 64.2 MM HG (35-48); ABG PH 7.215 (7.35-7.45); ABG PO2 91.4 MM HG (80-95); ABG TCO2 24.6 MMOL/L (23-27)
[2021-04-20 04:37] LABS: Basophils % 0.1 % (0.0-0.8); Hematocrit 28.4 VOL% (42.0-52.0); Hemoglobin 8.6 GM/DL (14.0-18.0); Immature Granulocytes % 2.1 %; Immature Granulocytes Absolute 0.26 #; Lymphocytes # 0.6 10*3/uL (1.4-4.0); Lymphocytes % 5.1 % (21.2-54.2); Mean Corpuscular HGB Conc 30.3 GM/DL (32-36); Mean Corpuscular Volume 90.7 FL (87-102); Mean Platelet Volume 10.2 FL (9.6-12.0); Monocytes % 4.7 % (1.7-12.7); NRBC # 0.27 10*3/uL; Platelet Count 346 T/CUMM (130-400); Red Blood Count 3.13 MC/CUMM (3.8-5.5); Red Cell Distribution Width 16.5 % (9.3-17.3); White Blood Count 12.6 T/CUMM (4-12)
[2021-04-20 04:56] LABS: Calcium 7.5 MG/DL (8.5-10.1); Osmolality,Calculated 314.8 MOS/KG (273-304); Potassium 5.6 MMOL/L (3.5-5.1)
[2021-04-20 04:58] LABS: High Sensitive Troponin I* 131.3 ng/L (0-78)
[2021-04-20 04:59] LABS: Band Neutrophils 3 % (0-10); Hypochromia 1+; Lymphocytes 8 % (20-55); Microcytosis 1+; Myelocytes 1 %; Nucleated Red Blood Cells 1 (0-5); Ovalocytes Slight; Segmented Neutrophils 85 % (50-85); Total Cells Counted 100
[2021-04-20] MEDS: FUROSEMIDE INJ 100 MG in SODIUM CHLORIDE 0.9% 90 ML IV SCH (06:22)
[2021-04-20] MEDS: DOCUSATE SODIUM 100 MG/10 ML UDCUP PO SCH ×2 (08:48→21:59)
[2021-04-20] MEDS: ZINC GLUCONATE 50 MG TABLET PO SCH (08:48)
[2021-04-20] MEDS: amLODIPine 10 MG TABLET PO SCH (08:49)
[2021-04-20] MEDS: PANTOPRAZOLE 40 MG VIAL IV SCH (08:49)
[2021-04-20] MEDS: CHOLECALCIFEROL 1,000 UNIT TABLET PO SCH (08:49)
[2021-04-20] MEDS: ASCORBIC ACID 500 MG TABLET PO SCH ×2 (08:49→21:58)
[2021-04-20] MEDS: ASPIRIN CHEW 81 MG TABLET PO SCH (08:49)
[2021-04-20] MEDS: carvediloL 12.5 MG TABLET PO SCH (08:49)
[2021-04-20] MEDS: FERRIC GLUCONATE COMPLEX 125 MG in SODIUM CHLORIDE 0.9% 100 ML IV SCH (09:16)
[2021-04-20] MEDS: SODIUM ZIRCONIUM CYCLOSILICATE 10 GM PACK PER TUBE SCH ×3 (09:47→21:58)
[2021-04-20] MEDS ORDERED: carvediloL 12.5 MG TABLET NG ONE (10:11)
[2021-04-20] MEDS ORDERED: LIDOCAINE 1% 20 ML VIAL ONE (11:32)
[2021-04-20] MEDS ORDERED: ALTEPLASE 12 MG in SODIUM CHLORIDE 0.9% 240 ML IV SCH (12:30)
[2021-04-20] MEDS ORDERED: SODIUM CHLORIDE 0.9% 1,000 ML IV SCH ×2 (12:30)
[2021-04-20 17:21] LABS: INR 1.1; PT Patient Result 12.5 SECS (10.5-12.0)
[2021-04-20] MEDS: INSULIN LISPRO 100 UNIT/ML SUBCUT PRN (17:36)
[2021-04-20] MEDS: HEPARIN DRIP 25,000 UNITS/500 ML PREMIX IV SCH ×2 (17:40→20:54)
[2021-04-20] MEDS ORDERED: carvediloL 25 MG TABLET NG SCH (21:00)
[2021-04-20] MEDS: INSULIN GLARGINE 100 UNIT/ML SUBCUT SCH (21:59)
[2021-04-21] MEDS: ALBUTEROL/IPRATROPIUM 3 ML NEB RESP TX SCH ×2 (00:13→08:08)
[2021-04-21] MEDS: FUROSEMIDE INJ 100 MG in SODIUM CHLORIDE 0.9% 90 ML IV SCH ×2 (00:59→22:34)
[2021-04-21] MEDS: INSULIN LISPRO 100 UNIT/ML SUBCUT PRN ×4 (01:34→17:59)
[2021-04-21] MEDS: methylPREDNISolone SOD SUC 40 MG/1 ML VIAL IV SCH ×3 (01:36→16:53)
[2021-04-21] MEDS ORDERED: MORPHINE 2 MG/1 ML SYRINGE IV ONE ×2 (01:51→05:34)
[2021-04-21 04:19] LABS: ABG Base Excess -2.2 MMOL/L (-2.5-2.5); ABG HCO3 22.5 MMOL/L (20-26); ABG Oxygen Saturation 95.4 % (95-100); ABG PCO2 59.6 MM HG (35-48); ABG PH 7.242 (7.35-7.45); ABG PO2 91.6 MM HG (80-95); ABG TCO2 24.4 MMOL/L (23-27)
[2021-04-21 04:32] LABS: Basophils % 0.1 % (0.0-0.8); Hematocrit 25.8 VOL% (42.0-52.0); Hemoglobin 7.8 GM/DL (14.0-18.0); Immature Granulocytes % 5.4 %; Immature Granulocytes Absolute 0.72 #; Lymphocytes # 0.8 10*3/uL (1.4-4.0); Lymphocytes % 5.6 % (21.2-54.2); Mean Corpuscular HGB Conc 30.2 GM/DL (32-36); Mean Corpuscular Volume 91.2 FL (87-102); Mean Platelet Volume 10.3 FL (9.6-12.0); Monocytes % 5.6 % (1.7-12.7); NRBC # 0.29 10*3/uL; Neutrophils % 83.3 % (38.7-73.9); Platelet Count 299 T/CUMM (130-400); Red Blood Count 2.83 MC/CUMM (3.8-5.5); Red Cell Distribution Width 16.5 % (9.3-17.3); White Blood Count 13.3 T/CUMM (4-12)
[2021-04-21 04:39] LABS: INR 1.1; PT Patient Result 12.4 SECS (10.5-12.0)
[2021-04-21 04:40] LABS: Partial Thromboplastin Time 50.9 SECS (23.8-32.1)
[2021-04-21 04:51] LABS: Band Neutrophils 1 % (0-10); Hypochromia 1+; Lymphocytes 9 % (20-55); Microcytosis 1+; Nucleated Red Blood Cells 5 (0-5); Platelet Estimate Adequate; Segmented Neutrophils 85 % (50-85); Total Cells Counted 100
[2021-04-21 05:03] LABS: Calcium 7.6 MG/DL (8.5-10.1); Osmolality,Calculated 329.7 MOS/KG (273-304); Potassium 5.4 MMOL/L (3.5-5.1)
[2021-04-21] MEDS ORDERED: VANCOMYCIN INJ 1,250 MG in SODIUM CHLORIDE 0.9% 250 ML IV SCH (05:30)
[2021-04-21] MEDS ORDERED: PIPERACILLIN/TAZOBACTAM 3,375 MG in SODIUM CHLORIDE 0.9% 100 ML IV SCH (05:30)
[2021-04-21] MEDS ORDERED: fentaNYL INJ 1,250 MCG in SODIUM CHLORIDE 0.9% 225 ML IV PRN (07:15)
[2021-04-21] MEDS: SODIUM ZIRCONIUM CYCLOSILICATE 10 GM PACK PER TUBE SCH ×3 (08:34→21:33)
[2021-04-21] MEDS: ASCORBIC ACID 500 MG TABLET PO SCH ×2 (08:34→21:36)
[2021-04-21] MEDS: ASPIRIN CHEW 81 MG TABLET PO SCH (08:34)
[2021-04-21] MEDS: PANTOPRAZOLE 40 MG VIAL IV SCH (08:34)
[2021-04-21] MEDS: CHOLECALCIFEROL 1,000 UNIT TABLET PO SCH (08:34)
[2021-04-21] MEDS: INSULIN GLARGINE 100 UNIT/ML SUBCUT SCH ×2 (08:34→21:32)
[2021-04-21] MEDS: DOCUSATE SODIUM 100 MG/10 ML UDCUP PO SCH ×2 (08:34→21:32)
[2021-04-21] MEDS: ZINC GLUCONATE 50 MG TABLET PO SCH (08:34)
[2021-04-21] MEDS: FERRIC GLUCONATE COMPLEX 125 MG in SODIUM CHLORIDE 0.9% 100 ML IV SCH (08:42)
[2021-04-21] MEDS ORDERED: VANCOMYCIN INJ 1,750 MG in SODIUM CHLORIDE 0.9% 500 ML IV PRN (10:35)
[2021-04-21] MEDS: CISATRACURIUM 200 MG in SODIUM CHLORIDE 0.9% 180 ML IV PRN ×2 (11:10→11:11)
[2021-04-21] MEDS ORDERED: VANCOMYCIN INJ 2,250 MG in SODIUM CHLORIDE 0.9% 500 ML IV ONE (12:00)
[2021-04-21] MEDS ORDERED: SODIUM CHLORIDE 0.9% 500 ML IV ONE (12:15)
[2021-04-21 12:40] LABS: ABG Base Excess -3.3 MMOL/L (-2.5-2.5); ABG HCO3 21.5 MMOL/L (20-26); ABG Oxygen Saturation 87.8 % (95-100); ABG PO2 70.3 MM HG (80-95); ABG TCO2 25.3 MMOL/L (23-27); Glucose Heart Surgery 196 MG/DL (74-106); Hematocrit Heart Surgery 26.3 PERCENT (42-52); Hemoglobin Heart Surgery 8.5 G/DL (14.0-18.0); Potassium Heart/CVR 5.6 MMOL/L (3.5-5.1)
[2021-04-21] MEDS ORDERED: NOREPINEPHRINE 4 MG/4 ML VIAL IV ONE (12:43)
[2021-04-21] MEDS ORDERED: SODIUM CHLORIDE 0.9% 1,000 ML IV PRN ×3 (12:45→17:34)
[2021-04-21] MEDS: NOREPINEPHRINE 8 MG in SODIUM CHLORIDE 0.9% 242 ML IV PRN (12:50)
[2021-04-21] MEDS: fentaNYL INJ 2,500 MCG in SODIUM CHLORIDE 0.9% 75 ML IV PRN (12:52)
[2021-04-21 13:05] LABS: ABG PCO2 72.3 MM HG (35-48)
[2021-04-21 13:39] LABS: Calcium 7.4 MG/DL (8.5-10.1); Osmolality,Calculated 328.7 MOS/KG (273-304); Potassium 5.7 MMOL/L (3.5-5.1)
[2021-04-21 14:58] LABS: ABG Base Excess -2.3 MMOL/L (-2.5-2.5); ABG HCO3 22.4 MMOL/L (20-26); ABG Oxygen Saturation 90.8 % (95-100); ABG PCO2 60.7 MM HG (35-48); ABG PH 7.234 (7.35-7.45); ABG PO2 71.3 MM HG (80-95); ABG TCO2 24.6 MMOL/L (23-27); Glucose Heart Surgery 202 MG/DL (74-106); Hematocrit Heart Surgery 22.4 PERCENT (42-52); Hemoglobin Heart Surgery 7.2 G/DL (14.0-18.0); Potassium Heart/CVR 5.7 MMOL/L (3.5-5.1)
[2021-04-21 14:58] LABS: Hepatitis B Core IgM Quant 0.24 Index; Hepatitis B Surface Ag Quant < 0.10 Index; Hepatitis B Surface Ag Result Non-Reactive (NonReactive); Hepatitis C Virus Ab Quant < 0.02 Index; Hepatitis C Virus Ab Result Non-Reactive (NonReactive)
[2021-04-21] MEDS ORDERED: HEPARIN 10,000 UNIT/10 ML VIAL IV SCH (19:45)
[2021-04-21] MEDS ORDERED: MIDAZOLAM 2 MG/2 ML VIAL IV ONE (20:41)
[2021-04-21] MEDS: APIXABAN 2.5 MG TABLET PO SCH (21:32)
[2021-04-21 21:49] LABS: Basophils % 0.1 % (0.0-0.8); Hematocrit 29.5 VOL% (42.0-52.0); Hemoglobin 9.1 GM/DL (14.0-18.0); Immature Granulocytes % 6.6 %; Immature Granulocytes Absolute 0.76 #; Lymphocytes # 0.8 10*3/uL (1.4-4.0); Lymphocytes % 6.6 % (21.2-54.2); Mean Corpuscular HGB Conc 30.8 GM/DL (32-36); Mean Corpuscular Volume 87.5 FL (87-102); Mean Platelet Volume 10.6 FL (9.6-12.0); Monocytes % 7.5 % (1.7-12.7); NRBC # 0.36 10*3/uL; Neutrophils % 79.2 % (38.7-73.9); Platelet Count 239 T/CUMM (130-400); Red Blood Count 3.37 MC/CUMM (3.8-5.5); Red Cell Distribution Width 17.3 % (9.3-17.3); White Blood Count 11.6 T/CUMM (4-12)
[2021-04-21 22:28] LABS: Lymphocytes 4 % (20-55); Nucleated Red Blood Cells 6 (0-5); Segmented Neutrophils 94 % (50-85); Total Cells Counted 100
[2021-04-21 22:30] LABS: Elliptocytes 1+; Target Cells 1+
[2021-04-21 22:31] LABS: Anisocytosis 1+; Macrocytosis 1+; Poikilocytosis 1+
[2021-04-22] MEDS: INSULIN LISPRO 100 UNIT/ML SUBCUT PRN ×3 (00:32→21:02)
[2021-04-22] MEDS: methylPREDNISolone SOD SUC 40 MG/1 ML VIAL IV SCH ×3 (00:32→17:34)
[2021-04-22 03:49] LABS: Basophils % 0.1 % (0.0-0.8); Hemoglobin 9.2 GM/DL (14.0-18.0); Immature Granulocytes % 6.8 %; Immature Granulocytes Absolute 0.75 #; Lymphocytes # 0.7 10*3/uL (1.4-4.0); Lymphocytes % 6.5 % (21.2-54.2); Mean Corpuscular HGB Conc 30.7 GM/DL (32-36); Mean Corpuscular Volume 87.5 FL (87-102); Mean Platelet Volume 10.3 FL (9.6-12.0); Monocytes % 7.4 % (1.7-12.7); NRBC # 0.31 10*3/uL; Neutrophils % 79.2 % (38.7-73.9); Platelet Count 221 T/CUMM (130-400); Red Blood Count 3.43 MC/CUMM (3.8-5.5); Red Cell Distribution Width 17.6 % (9.3-17.3)
[2021-04-22 03:50] LABS: ABG Base Excess -0.3 MMOL/L (-2.5-2.5); ABG HCO3 24.2 MMOL/L (20-26); ABG Oxygen Saturation 97.3 % (95-100); ABG PCO2 60.9 MM HG (35-48); ABG PH 7.266 (7.35-7.45); ABG TCO2 25.8 MMOL/L (23-27)
[2021-04-22 04:04] LABS: Calcium 7.7 MG/DL (8.5-10.1); Potassium 5.3 MMOL/L (3.5-5.1)
[2021-04-22 04:09] LABS: Band Neutrophils 1 % (0-10); Hypochromia 1+; Lymphocytes 10 % (20-55); Microcytosis 1+; Nucleated Red Blood Cells 4 (0-5); Platelet Estimate Adequate; Segmented Neutrophils 84 % (50-85); Total Cells Counted 100
[2021-04-22] MEDS: APIXABAN 2.5 MG TABLET PO SCH ×2 (11:44→21:01)
[2021-04-22] MEDS: ASPIRIN CHEW 81 MG TABLET PO SCH (11:44)
[2021-04-22] MEDS: INSULIN GLARGINE 100 UNIT/ML SUBCUT SCH ×2 (11:44→21:01)
[2021-04-22] MEDS: DOCUSATE SODIUM 100 MG/10 ML UDCUP PO SCH ×2 (11:44→21:00)
[2021-04-22] MEDS: ASCORBIC ACID 500 MG TABLET PO SCH ×2 (11:45→21:01)
[2021-04-22] MEDS: ZINC GLUCONATE 50 MG TABLET PO SCH (11:45)
[2021-04-22] MEDS: SODIUM ZIRCONIUM CYCLOSILICATE 10 GM PACK PER TUBE SCH ×3 (11:45→21:00)
[2021-04-22] MEDS: CHOLECALCIFEROL 1,000 UNIT TABLET PO SCH (11:45)
[2021-04-22] MEDS: PANTOPRAZOLE 40 MG VIAL IV SCH (11:47)
[2021-04-22] MEDS: fentaNYL INJ 2,500 MCG in SODIUM CHLORIDE 0.9% 75 ML IV PRN ×3 (11:50→22:35)
[2021-04-22] MEDS: FUROSEMIDE INJ 100 MG in SODIUM CHLORIDE 0.9% 90 ML IV SCH (17:10)
[2021-04-23] MEDS: methylPREDNISolone SOD SUC 40 MG/1 ML VIAL IV SCH ×3 (01:14→14:49)
[2021-04-23 04:31] LABS: ABG Base Excess -0.3 MMOL/L (-2.5-2.5); ABG HCO3 24.1 MMOL/L (20-26); ABG Oxygen Saturation 96.7 % (95-100); ABG PCO2 62.8 MM HG (35-48); ABG PH 7.259 (7.35-7.45); ABG PO2 99.9 MM HG (80-95); ABG TCO2 25.9 MMOL/L (23-27)
[2021-04-23 04:34] LABS: Basophils % 0.1 % (0.0-0.8); Eosinophils % 0.3 % (0.00-10.9); Hematocrit 29.9 VOL% (42.0-52.0); Hemoglobin 9.2 GM/DL (14.0-18.0); Immature Granulocytes % 7.1 %; Immature Granulocytes Absolute 0.76 #; Lymphocytes # 0.7 10*3/uL (1.4-4.0); Lymphocytes % 6.2 % (21.2-54.2); Mean Corpuscular HGB Conc 30.8 GM/DL (32-36); Mean Corpuscular Volume 88.2 FL (87-102); Mean Platelet Volume 10.8 FL (9.6-12.0); Monocytes % 5.9 % (1.7-12.7); NRBC # 0.28 10*3/uL; Neutrophils % 80.4 % (38.7-73.9); Platelet Count 164 T/CUMM (130-400); Red Blood Count 3.39 MC/CUMM (3.8-5.5); Red Cell Distribution Width 17.7 % (9.3-17.3); White Blood Count 10.6 T/CUMM (4-12)
[2021-04-23 04:49] LABS: Calcium 7.9 MG/DL (8.5-10.1); Osmolality,Calculated 313.1 MOS/KG (273-304); Potassium 5.1 MMOL/L (3.5-5.1)
[2021-04-23 04:54] LABS: Eosinophils 1 % (0-10); Lymphocytes 10 % (20-55); Nucleated Red Blood Cells 4 (0-5); Segmented Neutrophils 86 % (50-85); Total Cells Counted 100
[2021-04-23 04:55] LABS: Hypochromia 1+; Microcytosis 1+; Platelet Estimate Adequate
[2021-04-23 05:04] LABS: Alanine Aminotransferase 43 U/L (16-61); Albumin 1.6 G/DL (3.4-5.0); Alkaline Phosphatase 202 U/L (45-117); Aspartate Amino Transferase 29 U/L (0-37); Bilirubin,Direct < 0.100 MG/DL (0.0-0.20); Bilirubin,Indirect 0.3 MG/DL (0.0-1.0); Bilirubin,Total < 0.39 MG/DL (0.20-1.00); Total Protein 6.4 G/DL (6.4-8.2)
[2021-04-23] MEDS: INSULIN GLARGINE 100 UNIT/ML SUBCUT SCH ×2 (08:43→20:17)
[2021-04-23] MEDS: PANTOPRAZOLE 40 MG VIAL IV SCH (08:44)
[2021-04-23] MEDS: ASPIRIN CHEW 81 MG TABLET PO SCH (08:50)
[2021-04-23] MEDS: DOCUSATE SODIUM 100 MG/10 ML UDCUP PO SCH ×2 (08:50→20:12)
[2021-04-23] MEDS: ASCORBIC ACID 500 MG TABLET PO SCH ×2 (08:50→20:12)
[2021-04-23] MEDS: CHOLECALCIFEROL 1,000 UNIT TABLET PO SCH (08:50)
[2021-04-23] MEDS: APIXABAN 2.5 MG TABLET PO SCH ×2 (08:50→20:12)
[2021-04-23] MEDS: SODIUM ZIRCONIUM CYCLOSILICATE 10 GM PACK PER TUBE SCH ×3 (08:50→20:12)
[2021-04-23] MEDS: ZINC GLUCONATE 50 MG TABLET PO SCH (08:50)
[2021-04-23] MEDS ORDERED: VANCOMYCIN INJ 1,000 MG in SODIUM CHLORIDE 0.9% 250 ML IV PRN ×2 (09:50→10:00)
[2021-04-23] MEDS: fentaNYL INJ 2,500 MCG in SODIUM CHLORIDE 0.9% 75 ML IV PRN ×2 (10:38→22:06)
[2021-04-23] MEDS ORDERED: ALTEPLASE 2 MG VIAL IV SCH (14:00)
[2021-04-23] MEDS: MICAFUNGIN 100 MG in SODIUM CHLORIDE 0.9% 100 ML IV SCH (15:54)
[2021-04-23] MEDS ORDERED: VANCOMYCIN INJ 1,000 MG in SODIUM CHLORIDE 0.9% 250 ML IV ONE (17:00)
[2021-04-23] MEDS ORDERED: DEXTROSE 10% 250 ML BAG IV PRN (23:30)
[2021-04-24] MEDS: methylPREDNISolone SOD SUC 40 MG/1 ML VIAL IV SCH ×2 (01:31→15:06)
[2021-04-24 03:55] LABS: ABG Base Excess -0.7 MMOL/L (-2.5-2.5); ABG HCO3 26.8 MMOL/L (20-26); ABG Oxygen Saturation 98.1 % (95-100); ABG PCO2 59.8 MM HG (35-48); ABG PH 7.269 (7.35-7.45); ABG PO2 137.9 MM HG (80-95); ABG TCO2 28.6 MMOL/L (23-27)
[2021-04-24 03:58] LABS: Basophils % 0.2 % (0.0-0.8); Eosinophils # 0.1 10*3/uL (0.0-0.87); Eosinophils % 0.5 % (0.00-10.9); Hematocrit 28.4 VOL% (42.0-52.0); Immature Granulocytes % 3.4 %; Lymphocytes # 0.8 10*3/uL (1.4-4.0); Lymphocytes % 6.6 % (21.2-54.2); Mean Corpuscular HGB Conc 31.7 GM/DL (32-36); Mean Corpuscular Volume 88.2 FL (87-102); Mean Platelet Volume 10.6 FL (9.6-12.0); Monocytes % 5.3 % (1.7-12.7); NRBC # 0.22 10*3/uL; Platelet Count 121 T/CUMM (130-400); Red Blood Count 3.22 MC/CUMM (3.8-5.5); Red Cell Distribution Width 17.5 % (9.3-17.3); White Blood Count 11.9 T/CUMM (4-12)
[2021-04-24 04:12] LABS: Calcium 7.7 MG/DL (8.5-10.1); Potassium 5.1 MMOL/L (3.5-5.1)
[2021-04-24 04:15] LABS: Alanine Aminotransferase 33 U/L (16-61); Albumin 1.7 G/DL (3.4-5.0); Alkaline Phosphatase 191 U/L (45-117); Aspartate Amino Transferase 34 U/L (0-37); Bilirubin,Direct < 0.100 MG/DL (0.0-0.20); Bilirubin,Indirect 0.3 MG/DL (0.0-1.0); Bilirubin,Total < 0.39 MG/DL (0.20-1.00); Total Protein 6.4 G/DL (6.4-8.2)
[2021-04-24 04:19] LABS: Band Neutrophils 2 % (0-10); Eosinophils 1 % (0-10); Hypochromia 1+; Lymphocytes 7 % (20-55); Nucleated Red Blood Cells 2 (0-5); Platelet Estimate Normal; Segmented Neutrophils 86 % (50-85); Total Cells Counted 100
[2021-04-24 04:20] LABS: Microcytosis Slight
[2021-04-24] MEDS: DOCUSATE SODIUM 100 MG/10 ML UDCUP PO SCH ×2 (08:32→20:42)
[2021-04-24] MEDS: ASPIRIN CHEW 81 MG TABLET PO SCH (08:32)
[2021-04-24] MEDS: ASCORBIC ACID 500 MG TABLET PO SCH ×2 (08:32→20:41)
[2021-04-24] MEDS: ZINC GLUCONATE 50 MG TABLET PO SCH (08:33)
[2021-04-24] MEDS: APIXABAN 2.5 MG TABLET PO SCH ×2 (08:33→20:42)
[2021-04-24] MEDS: CHOLECALCIFEROL 1,000 UNIT TABLET PO SCH (08:33)
[2021-04-24] MEDS: SODIUM ZIRCONIUM CYCLOSILICATE 10 GM PACK PER TUBE SCH ×3 (08:34→20:41)
[2021-04-24] MEDS: PANTOPRAZOLE 40 MG VIAL IV SCH (08:34)
[2021-04-24] MEDS: INSULIN GLARGINE 100 UNIT/ML SUBCUT SCH ×2 (08:35→21:46)
[2021-04-24 11:06] LABS: Protein S Ag (Free) 93 % (65 - 160)
[2021-04-24] MEDS: fentaNYL INJ 2,500 MCG in SODIUM CHLORIDE 0.9% 75 ML IV PRN ×2 (12:50→21:36)
[2021-04-24] MEDS: MICAFUNGIN 100 MG in SODIUM CHLORIDE 0.9% 100 ML IV SCH (15:44)
[2021-04-24] MEDS: CISATRACURIUM 200 MG in SODIUM CHLORIDE 0.9% 180 ML IV PRN (16:51)
[2021-04-24] MEDS: ACETAMINOPHEN 325 MG/10.15 ML UDCUP PO PRN (18:18)
[2021-04-24 19:10] LABS: Phospholipid Ab IgM, S < 9.4 MPL
[2021-04-24] MEDS ORDERED: APIXABAN 5 MG TABLET PO SCH (21:00)
[2021-04-24] MEDS ORDERED: ALBUTEROL/IPRATROPIUM 3 ML NEB RESP TX PRN (22:28)
[2021-04-24 22:31] LABS: ABG Base Excess -4.7 MMOL/L (-2.5-2.5); ABG HCO3 20.4 MMOL/L (20-26); ABG Oxygen Saturation 91.7 % (95-100); ABG PO2 82.4 MM HG (80-95); ABG TCO2 26.2 MMOL/L (23-27)
[2021-04-24 22:33] LABS: ABG PH 7.096 (7.35-7.45)
[2021-04-25] MEDS: methylPREDNISolone SOD SUC 40 MG/1 ML VIAL IV SCH ×2 (01:30→14:43)
[2021-04-25 02:05] LABS: ABG Base Excess -4.1 MMOL/L (-2.5-2.5); ABG Oxygen Saturation 96.4 % (95-100); ABG TCO2 24.6 MMOL/L (23-27)
[2021-04-25 02:08] LABS: ABG PCO2 72.1 MM HG (35-48)
[2021-04-25] MEDS: fentaNYL INJ 2,500 MCG in SODIUM CHLORIDE 0.9% 75 ML IV PRN ×3 (04:31→19:30)
[2021-04-25 04:50] LABS: Basophils % 0.1 % (0.0-0.8); Eosinophils % 0.3 % (0.00-10.9); Hematocrit 28.5 VOL% (42.0-52.0); Hemoglobin 8.8 GM/DL (14.0-18.0); Immature Granulocytes % 1.7 %; Lymphocytes # 0.5 10*3/uL (1.4-4.0); Lymphocytes % 4.5 % (21.2-54.2); Mean Corpuscular HGB Conc 30.9 GM/DL (32-36); Mean Corpuscular Volume 90.2 FL (87-102); Mean Platelet Volume 10.6 FL (9.6-12.0); Monocytes % 4.3 % (1.7-12.7); NRBC # 0.14 10*3/uL; Neutrophils % 89.1 % (38.7-73.9); Platelet Count 116 T/CUMM (130-400); Red Blood Count 3.16 MC/CUMM (3.8-5.5); Red Cell Distribution Width 17.7 % (9.3-17.3); White Blood Count 11.7 T/CUMM (4-12)
[2021-04-25 05:10] LABS: Alanine Aminotransferase 43 U/L (16-61); Albumin 1.5 G/DL (3.4-5.0); Alkaline Phosphatase 225 U/L (45-117); Aspartate Amino Transferase 35 U/L (0-37); Bilirubin,Indirect 0.2 MG/DL (0.0-1.0); Bilirubin,Total < 0.39 MG/DL (0.20-1.00); Blood Urea Nitrogen 125 MG/DL (7-18); Calcium 7.2 MG/DL (8.5-10.1); Carbon Dioxide 25 MMOL/L (21-32); Estimated Glom Filtration Rate 23 ML/MIN; Glucose 211 MG/DL (74-106); Osmolality,Calculated 324.4 MOS/KG (273-304); Potassium 5.5 MMOL/L (3.5-5.1); Sodium 140 MMOL/L (136-145); Total Protein 6.3 G/DL (6.4-8.2)
[2021-04-25 05:22] LABS: ABG Base Excess -3.7 MMOL/L (-2.5-2.5); ABG Oxygen Saturation 95.7 % (95-100); ABG PCO2 67.2 MM HG (35-48); ABG PO2 95.1 MM HG (80-95)
[2021-04-25 05:24] LABS: ABG PH 7.188 (7.35-7.45)
[2021-04-25] MEDS: INSULIN LISPRO 100 UNIT/ML SUBCUT PRN (05:42)
[2021-04-25 06:21] LABS: ABG PCO2 88.4 MM HG (35-48)
[2021-04-25 06:43] LABS: Band Neutrophils 7 % (0-10); Eosinophils 1 % (0-10); Lymphocytes 9 % (20-55); Metamyelocytes 2 %; Nucleated Red Blood Cells 12 (0-5); Segmented Neutrophils 68 % (50-85); Total Cells Counted 100
[2021-04-25 06:54] LABS: Hypochromia Slight; Microcytosis 1+; Platelet Estimate Adequate
[2021-04-25 06:55] LABS: Anisocytosis 1+; Polychromasia 1+
[2021-04-25 06:56] LABS: Ovalocytes Few; Stomatocytes Slight
[2021-04-25] MEDS: CISATRACURIUM 200 MG in SODIUM CHLORIDE 0.9% 180 ML IV PRN (07:51)
[2021-04-25] MEDS: PANTOPRAZOLE 40 MG VIAL IV SCH (08:12)
[2021-04-25] MEDS: INSULIN GLARGINE 100 UNIT/ML SUBCUT SCH ×2 (08:12→21:47)
[2021-04-25] MEDS: ASCORBIC ACID 500 MG TABLET PO SCH ×2 (08:13→21:46)
[2021-04-25] MEDS: ASPIRIN CHEW 81 MG TABLET PO SCH (08:13)
[2021-04-25] MEDS: SODIUM ZIRCONIUM CYCLOSILICATE 10 GM PACK PER TUBE SCH ×3 (08:13→21:46)
[2021-04-25] MEDS: ZINC GLUCONATE 50 MG TABLET PO SCH (08:13)
[2021-04-25] MEDS: DOCUSATE SODIUM 100 MG/10 ML UDCUP PO SCH ×2 (08:13→21:45)
[2021-04-25] MEDS: APIXABAN 2.5 MG TABLET PO SCH ×2 (08:13→21:45)
[2021-04-25] MEDS: CHOLECALCIFEROL 1,000 UNIT TABLET PO SCH (08:13)
[2021-04-25] MEDS ORDERED: NOREPINEPHRINE 4 MG/4 ML VIAL IV ONE (13:51)
[2021-04-25] MEDS: MICAFUNGIN 100 MG in SODIUM CHLORIDE 0.9% 100 ML IV SCH (15:11)
[2021-04-25] MEDS: NOREPINEPHRINE 8 MG in SODIUM CHLORIDE 0.9% 242 ML IV PRN (15:18)
[2021-04-25] MEDS ORDERED: VANCOMYCIN INJ 1,000 MG in SODIUM CHLORIDE 0.9% 250 ML IV ONE (17:00)
[2021-04-26] MEDS: methylPREDNISolone SOD SUC 40 MG/1 ML VIAL IV SCH ×2 (02:38→14:55)
[2021-04-26] MEDS: fentaNYL INJ 2,500 MCG in SODIUM CHLORIDE 0.9% 75 ML IV PRN ×3 (02:48→17:42)
[2021-04-26 04:32] LABS: ABG Base Excess -3.7 MMOL/L (-2.5-2.5); ABG HCO3 26.3 MMOL/L (20-26); ABG Oxygen Saturation 96.2 % (95-100); ABG PO2 103.2 MM HG (80-95); ABG TCO2 28.8 MMOL/L (23-27)
[2021-04-26 04:33] LABS: ABG PCO2 81.3 MM HG (35-48); ABG PH 7.127 (7.35-7.45)
[2021-04-26 04:37] LABS: Basophils % 0.1 % (0.0-0.8); Eosinophils % 0.3 % (0.00-10.9); Hematocrit 28.8 VOL% (42.0-52.0); Hemoglobin 8.9 GM/DL (14.0-18.0); Immature Granulocytes % 1.5 %; Immature Granulocytes Absolute 0.16 #; Lymphocytes # 0.5 10*3/uL (1.4-4.0); Lymphocytes % 5.1 % (21.2-54.2); Mean Corpuscular HGB Conc 30.9 GM/DL (32-36); Mean Corpuscular Volume 89.4 FL (87-102); Mean Platelet Volume 12.5 FL (9.6-12.0); Monocytes % 4.2 % (1.7-12.7); NRBC # 0.08 10*3/uL; Neutrophils % 88.8 % (38.7-73.9); Platelet Count 120 T/CUMM (130-400); Red Blood Count 3.22 MC/CUMM (3.8-5.5); Red Cell Distribution Width 17.9 % (9.3-17.3); White Blood Count 10.4 T/CUMM (4-12)
[2021-04-26 04:52] LABS: Alanine Aminotransferase 37 U/L (16-61); Albumin 1.6 G/DL (3.4-5.0); Alkaline Phosphatase 220 U/L (45-117); Aspartate Amino Transferase 27 U/L (0-37); Bilirubin,Indirect 0.3 MG/DL (0.0-1.0); Bilirubin,Total < 0.39 MG/DL (0.20-1.00); Blood Urea Nitrogen 119 MG/DL (7-18); Calcium 7.3 MG/DL (8.5-10.1); Carbon Dioxide 24 MMOL/L (21-32); Estimated Glom Filtration Rate 19 ML/MIN; Glucose 185 MG/DL (74-106); Osmolality,Calculated 319.5 MOS/KG (273-304); Potassium 5.5 MMOL/L (3.5-5.1); Sodium 139 MMOL/L (136-145); Total Protein 6.6 G/DL (6.4-8.2)
[2021-04-26 05:22] LABS: Band Neutrophils 3 % (0-10); Eosinophils 2 % (0-10); Lymphocytes 7 % (20-55); Myelocytes 1 %; Nucleated Red Blood Cells 5 (0-5); Platelet Estimate Normal; Segmented Neutrophils 77 % (50-85); Total Cells Counted 100
[2021-04-26 05:36] LABS: Microcytosis 1+; Polychromasia Slight
[2021-04-26] MEDS: INSULIN LISPRO 100 UNIT/ML SUBCUT PRN (06:22)
[2021-04-26] MEDS: ASPIRIN CHEW 81 MG TABLET PO SCH (08:23)
[2021-04-26] MEDS: DOCUSATE SODIUM 100 MG/10 ML UDCUP PO SCH ×2 (08:23→20:55)
[2021-04-26] MEDS: CHOLECALCIFEROL 1,000 UNIT TABLET PO SCH (08:23)
[2021-04-26] MEDS: ASCORBIC ACID 500 MG TABLET PO SCH ×2 (08:23→20:55)
[2021-04-26] MEDS: ZINC GLUCONATE 50 MG TABLET PO SCH (08:23)
[2021-04-26] MEDS: APIXABAN 2.5 MG TABLET PO SCH ×2 (08:24→20:55)
[2021-04-26] MEDS: SODIUM ZIRCONIUM CYCLOSILICATE 10 GM PACK PER TUBE SCH ×3 (08:24→21:15)
[2021-04-26] MEDS: PANTOPRAZOLE 40 MG VIAL IV SCH (08:24)
[2021-04-26] MEDS: INSULIN GLARGINE 100 UNIT/ML SUBCUT SCH ×2 (09:03→20:54)
[2021-04-26] MEDS: CISATRACURIUM 200 MG in SODIUM CHLORIDE 0.9% 180 ML IV PRN (12:29)
[2021-04-26] MEDS: ACETAMINOPHEN 325 MG/10.15 ML UDCUP PO PRN (13:14)
[2021-04-26] MEDS: MICAFUNGIN 100 MG in SODIUM CHLORIDE 0.9% 100 ML IV SCH (16:28)
[2021-04-26 21:21] LABS: Protein C, Total Antigen 77 % (63-153)
[2021-04-27] MEDS: fentaNYL INJ 2,500 MCG in SODIUM CHLORIDE 0.9% 75 ML IV PRN ×3 (01:36→19:22)
[2021-04-27] MEDS: methylPREDNISolone SOD SUC 40 MG/1 ML VIAL IV SCH ×2 (03:08→14:45)
[2021-04-27 04:17] LABS: ABG Base Excess -4.3 MMOL/L (-2.5-2.5); ABG HCO3 23.7 MMOL/L (20-26); ABG Oxygen Saturation 96.9 % (95-100); ABG PH 7.214 (7.35-7.45); ABG PO2 108.1 MM HG (80-95); ABG TCO2 25.5 MMOL/L (23-27)
[2021-04-27 04:36] LABS: Basophils % 0.1 % (0.0-0.8); Eosinophils % 0.4 % (0.00-10.9); Hematocrit 26.2 VOL% (42.0-52.0); Hemoglobin 8.1 GM/DL (14.0-18.0); Immature Granulocytes % 1.5 %; Immature Granulocytes Absolute 0.12 #; Lymphocytes # 0.8 10*3/uL (1.4-4.0); Mean Corpuscular HGB Conc 30.9 GM/DL (32-36); Mean Corpuscular Volume 89.4 FL (87-102); Mean Platelet Volume 11.5 FL (9.6-12.0); Monocytes % 5.5 % (1.7-12.7); NRBC # 0.08 10*3/uL; Neutrophils % 82.5 % (38.7-73.9); Platelet Count 129 T/CUMM (130-400); Red Blood Count 2.93 MC/CUMM (3.8-5.5); Red Cell Distribution Width 18.4 % (9.3-17.3); White Blood Count 8.2 T/CUMM (4-12)
[2021-04-27 04:48] LABS: Albumin 1.6 G/DL (3.4-5.0); Bilirubin,Direct 0.14 MG/DL (0.0-0.20); Bilirubin,Indirect 0.3 MG/DL (0.0-1.0); Bilirubin,Total 0.4 MG/DL (0.20-1.00); Calcium 7.3 MG/DL (8.5-10.1); Osmolality,Calculated 319.5 MOS/KG (273-304); Total Protein 6.4 G/DL (6.4-8.2)
[2021-04-27 04:57] LABS: Band Neutrophils 9 % (0-10); Eosinophils 1 % (0-10); Lymphocytes 7 % (20-55); Metamyelocytes 1 %; Nucleated Red Blood Cells 1 (0-5); Segmented Neutrophils 77 % (50-85); Total Cells Counted 100
[2021-04-27 04:58] LABS: Hypochromia 1+; Microcytosis 1+; Ovalocytes Slight; Platelet Estimate Adequate
[2021-04-27] MEDS: ACETAMINOPHEN 325 MG/10.15 ML UDCUP PO PRN (05:44)
[2021-04-27] MEDS: PANTOPRAZOLE 40 MG VIAL IV SCH (09:10)
[2021-04-27] MEDS: INSULIN GLARGINE 100 UNIT/ML SUBCUT SCH ×2 (09:15→21:53)
[2021-04-27] MEDS: CHOLECALCIFEROL 1,000 UNIT TABLET PO SCH (09:20)
[2021-04-27] MEDS: ZINC GLUCONATE 50 MG TABLET PO SCH (09:20)
[2021-04-27] MEDS: ASCORBIC ACID 500 MG TABLET PO SCH ×2 (09:20→21:51)
[2021-04-27] MEDS: ASPIRIN CHEW 81 MG TABLET PO SCH (09:20)
[2021-04-27] MEDS: APIXABAN 2.5 MG TABLET PO SCH ×2 (09:20→21:51)
[2021-04-27] MEDS: DOCUSATE SODIUM 100 MG/10 ML UDCUP PO SCH ×2 (09:20→21:51)
[2021-04-27] MEDS: SODIUM ZIRCONIUM CYCLOSILICATE 10 GM PACK PER TUBE SCH ×3 (09:45→21:51)
[2021-04-27] MEDS: INSULIN LISPRO 100 UNIT/ML SUBCUT SCH ×3 (12:00→20:22)
[2021-04-27] MEDS: MICAFUNGIN 100 MG in SODIUM CHLORIDE 0.9% 100 ML IV SCH (14:45)
[2021-04-27] MEDS: CISATRACURIUM 200 MG in SODIUM CHLORIDE 0.9% 180 ML IV PRN (17:00)
[2021-04-28] MEDS: INSULIN LISPRO 100 UNIT/ML SUBCUT SCH ×5 (00:42→15:40)
[2021-04-28] MEDS: fentaNYL INJ 2,500 MCG in SODIUM CHLORIDE 0.9% 75 ML IV PRN ×2 (02:44→09:10)
[2021-04-28] MEDS: methylPREDNISolone SOD SUC 40 MG/1 ML VIAL IV SCH ×2 (03:55→13:50)
[2021-04-28 05:09] LABS: ABG Base Excess -6.9 MMOL/L (-2.5-2.5); ABG HCO3 18.6 MMOL/L (20-26); ABG Oxygen Saturation 91.2 % (95-100); ABG PCO2 67.5 MM HG (35-48); ABG PO2 80.1 MM HG (80-95)
[2021-04-28 05:13] LABS: ABG PH 7.137 (7.35-7.45)
[2021-04-28 05:16] LABS: Eosinophils # 0.1 10*3/uL (0.0-0.87); Hematocrit 27.1 VOL% (42.0-52.0); Hemoglobin 8.3 GM/DL (14.0-18.0); Immature Granulocytes % 2.3 %; Immature Granulocytes Absolute 0.18 #; Lymphocytes # 0.8 10*3/uL (1.4-4.0); Lymphocytes % 10.2 % (21.2-54.2); Mean Corpuscular HGB Conc 30.6 GM/DL (32-36); Mean Corpuscular Volume 89.1 FL (87-102); Mean Platelet Volume 11.3 FL (9.6-12.0); Monocytes % 5.8 % (1.7-12.7); NRBC # 0.07 10*3/uL; Neutrophils % 80.7 % (38.7-73.9); Platelet Count 140 T/CUMM (130-400); Red Blood Count 3.04 MC/CUMM (3.8-5.5); Red Cell Distribution Width 18.6 % (9.3-17.3); White Blood Count 7.9 T/CUMM (4-12)
[2021-04-28] MEDS ORDERED: SODIUM BICARBONATE 50 MEQ/50 ML VIAL IV ONE ×2 (05:20→09:24)
[2021-04-28 05:40] LABS: Band Neutrophils 5 % (0-10); Eosinophils 5 % (0-10); Hypochromia 1+; Lymphocytes 11 % (20-55); Microcytosis 1+; Nucleated Red Blood Cells 4 (0-5); Ovalocytes Slight; Platelet Estimate Adequate; Segmented Neutrophils 70 % (50-85); Total Cells Counted 100
[2021-04-28 05:58] LABS: Albumin 1.6 G/DL (3.4-5.0); Bilirubin,Total 0.5 MG/DL (0.20-1.00); Calcium 6.6 MG/DL (8.5-10.1); Osmolality,Calculated 326.5 MOS/KG (273-304); Potassium 4.8 MMOL/L (3.5-5.1); Total Protein 6.8 G/DL (6.4-8.2)
[2021-04-28] MEDS: POLYVINYL ALCOHOL 1.4% OPH SOLN 15 ML BOTTLE BOTH EYES PRN (07:50)
[2021-04-28 08:31] LABS: F5DNA Reviewed By SEE COMMENTS; Factor V Leiden (R506Q) Mutati Negative (Negative)
[2021-04-28 08:43] LABS: ABG Base Excess -9.2 MMOL/L (-2.5-2.5); ABG Oxygen Saturation 96.3 % (95-100); ABG TCO2 24.9 MMOL/L (23-27)
[2021-04-28] MEDS ORDERED: VANCOMYCIN INJ 1,000 MG in SODIUM CHLORIDE 0.9% 250 ML IV PRN (09:00)
[2021-04-28] MEDS: ASCORBIC ACID 500 MG TABLET PO SCH (09:20)
[2021-04-28] MEDS: ZINC GLUCONATE 50 MG TABLET PO SCH (09:20)
[2021-04-28] MEDS: APIXABAN 2.5 MG TABLET PO SCH (09:20)
[2021-04-28] MEDS: SODIUM ZIRCONIUM CYCLOSILICATE 10 GM PACK PER TUBE SCH ×2 (09:20→15:00)
[2021-04-28] MEDS: CHOLECALCIFEROL 1,000 UNIT TABLET PO SCH (09:20)
[2021-04-28] MEDS: ASPIRIN CHEW 81 MG TABLET PO SCH (09:20)
[2021-04-28] MEDS: PANTOPRAZOLE 40 MG VIAL IV SCH (09:20)
[2021-04-28] MEDS: INSULIN GLARGINE 100 UNIT/ML SUBCUT SCH (09:20)
[2021-04-28] MEDS: DOCUSATE SODIUM 100 MG/10 ML UDCUP PO SCH (09:30)
[2021-04-28] MEDS ORDERED: ALTEPLASE 2 MG VIAL IV ONE (11:00)
[2021-04-28 11:42] LABS: ABG Base Excess -9.4 MMOL/L (-2.5-2.5); ABG HCO3 16.7 MMOL/L (20-26); ABG Oxygen Saturation 84.2 % (95-100); ABG PO2 76.2 MM HG (80-95); ABG TCO2 26.7 MMOL/L (23-27)
[2021-04-28 11:49] LABS: ABG PH 6.925 (7.35-7.45)
[2021-04-28] MEDS ORDERED: cloNIDine 0.1 MG TABLET PO PRN (12:07)
[2021-04-28] MEDS: NOREPINEPHRINE 8 MG in SODIUM CHLORIDE 0.9% 242 ML IV PRN (12:10)
[2021-04-28] MEDS ORDERED: amLODIPine 10 MG TABLET PO SCH (12:30)
[2021-04-28] MEDS ORDERED: SODIUM BICARB INJ 100 MEQ in SODIUM CHLORIDE 0.45% 1,000 ML IV SCH (13:00)
[2021-04-28 15:44] LABS: ABG Base Excess -11.5 MMOL/L (-2.5-2.5); ABG HCO3 15.2 MMOL/L (20-26); ABG Oxygen Saturation 88.4 % (95-100); ABG PO2 93.1 MM HG (80-95); ABG TCO2 29.7 MMOL/L (23-27)
[2021-04-28 15:52] LABS: Basophils % 0.1 % (0.0-0.8); Eosinophils % 0.2 % (0.00-10.9); Hematocrit 30.9 VOL% (42.0-52.0); Hemoglobin 9.2 GM/DL (14.0-18.0); Immature Granulocytes % 4.3 %; Immature Granulocytes Absolute 0.47 #; Lymphocytes # 0.9 10*3/uL (1.4-4.0); Lymphocytes % 8.3 % (21.2-54.2); Mean Corpuscular HGB Conc 29.8 GM/DL (32-36); Mean Corpuscular Volume 93.4 FL (87-102); Mean Platelet Volume 11.3 FL (9.6-12.0); Monocytes % 7.4 % (1.7-12.7); NRBC # 0.24 10*3/uL; Neutrophils % 79.7 % (38.7-73.9); Platelet Count 207 T/CUMM (130-400); Red Blood Count 3.31 MC/CUMM (3.8-5.5); Red Cell Distribution Width 18.8 % (9.3-17.3); White Blood Count 10.9 T/CUMM (4-12)
[2021-04-28] MEDS: MICAFUNGIN 100 MG in SODIUM CHLORIDE 0.9% 100 ML IV SCH (16:00)
[2021-04-28] MEDS ORDERED: VANCOMYCIN INJ 1,000 MG in SODIUM CHLORIDE 0.9% 250 ML IV ONE (17:00)
[2021-04-28] MEDS ORDERED: CALCIUM CHLORIDE 1,000 MG/10 ML SYRINGE IV ONE (17:06)
[2021-04-28] MEDS ORDERED: EPINEPHrine 1 MG/10 ML SYRINGE IV ONE (17:06)
[2021-04-28 17:24] LABS: Lymphocytes 10 % (20-55); Metamyelocytes 1 %; Nucleated Red Blood Cells 2 (0-5); Segmented Neutrophils 81 % (50-85); Total Cells Counted 100
[2021-04-28 17:25] LABS: Platelet Estimate Normal
[2021-04-28 17:32] VITALS: BP 106/43
== END 2021-04-28 16:15 | disposition expired | DRG 166 ==
LOC: N.ED 13:39 → SUATTDRO 17:13 → N.EDINP 17:13 → N.5E 18:58 → N.ICU 04-17 18:37
PROVIDERS: ADMIT Internal Medicine; ATTEND Internal Medicine